=== PATIENT | female | born 1935 | race African-American/Black ===

== ENCOUNTER 2017-04-07 10:36 | Inpatient (IN) | payer OTHER ==
[2017-04-07] MEDS ORDERED: Albuterol/Ipratropium NEB.SOL* Albuterol 2.5 MG/Ipratropium 0.5 MG 3 ML ONE (10:44)
--- NOTE | 2017-04-07 11:49 | RAD ---
HISTORY: Shortness of breath COMPARISONS: None VIEWS: 1: frontal portable view of the chest at 11:32 AM FINDINGS: LINES AND TUBES: None. CARDIOMEDIASTINAL SILHOUETTE: The cardiac silhouette is enlarged. The cardiomediastinal silhouette is otherwise normal for portable technique. PLEURA: The costophrenic angles are sharp. No pleural abnormalities are noted. LUNG PARENCHYMA: There is a diffuse reticular pattern with indistinct pulmonary vessels. There is confluent alveolar opacification of the right lower lung. ABDOMEN: The upper abdomen is clear. There is no subphrenic gas. BONES AND SOFT TISSUES: No bone or soft tissue abnormalities are noted. IMPRESSION: 1. CARDIOMEGALY. 2. PULMONARY INTERSTITIAL EDEMA. 3. RIGHT LOWER LUNG CONSOLIDATION. 4. RECOMMEND FOLLOW-UP UNTIL RESOLUTION TO UNDERLYING PULMONARY PARENCHYMAL PATHOLOGY.
[2017-04-07 12:12] LABS: Hematocrit 35 % (35-47); Hemoglobin 11.4 g/dl (12.0-16.0); Mean Corpuscular HGB Conc 33 g/dl (31-36); Mean Corpuscular Hemoglobin 31 pg (27-31); Mean Corpuscular Volume 96 fL (80-97); Mean Platelet Volume 11 um3 (7.4-10.4); Platelet Count 133 10^3/ul (150-450); Red Blood Count 3.66 10^6/ul (4.0-5.4); Red Cell Distribution Width 14 % (10.5-15); White Blood Count 14.2 10^3/ul (3.5-10.8)
[2017-04-07 12:15] LABS: INR 1.84 (0.77-1.02)
[2017-04-07 12:27] LABS: EGFR Non-African American 37.2 (>60)
[2017-04-07 12:49] LABS: ABS Basophils 0.1 10^3/ul (0-0.2); ABS Eosinophils 0 10^3/ul (0-0.6); ABS Lymphocytes 0.7 10^3/ul (1.0-4.8); ABS Monocytes 1.5 10^3/ul (0-0.8); ABS Neutrophils 11.8 10^3/ul (1.5-7.7); ABS Nucleated RBC 0 10^3/ul; Eosinophil % 0.1 % (0-6); Nucleated Red Blood Cells % 0
[2017-04-07] MEDS ORDERED: Aspirin TAB* 325 MG PO ONE (13:08)
[2017-04-07] MEDS ORDERED: Metoprolol Tartrate IV* 1 MG/ML 5 ML VIAL IV ONE (13:08)
[2017-04-07] MEDS ORDERED: Digoxin IV* 0.5 MG/2 ML AMP (0.25 MG/ML) IV SLOW PU ONE (13:09)
[2017-04-07] MEDS ORDERED: Perflutren Lipid Microsphere* 3 ML VIAL ONE (15:08)
[2017-04-07] MEDS ORDERED: Potassium Chloride LIQUID* 20 MEQ PACKET PO ONE (15:13)
[2017-04-07] MEDS ORDERED: Heparin DRIP 25,000 UNITS(*) 25,000 UNITS/500 ML BAG IVPB SCH (15:15)
[2017-04-07 15:55] LABS: Hematocrit 37 % (35-47); Hemoglobin 11.8 g/dl (12.0-16.0); Mean Corpuscular HGB Conc 32 g/dl (31-36); Mean Corpuscular Hemoglobin 31 pg (27-31); Mean Corpuscular Volume 96 fL (80-97); Mean Platelet Volume 12 um3 (7.4-10.4); Platelet Count 126 10^3/ul (150-450); Red Blood Count 3.86 10^6/ul (4.0-5.4); Red Cell Distribution Width 15 % (10.5-15); White Blood Count 13.6 10^3/ul (3.5-10.8)
[2017-04-07] MEDS ORDERED: Heparin VIAL(*) 5000 UNITS/ML VIAL (FIVE THOUSAND) IV SCH (16:00)
--- NOTE | 2017-04-07 16:34 | RAD ---
INDICATION: Shortness of breath, chest pain. Bilateral leg swelling. COMPARISON: No relevant prior exams available on the [facility] for comparison. TECHNIQUE: Hoff scale, color Doppler, and spectral analysis of the deep veins of the BILATERAL lower extremities. Vessel compression, phasicity, and augmentation assessed. REPORT: The RIGHT common femoral, great saphenous, profunda femoral, femoral, popliteal, peroneal, and posterior tibial veins are patent. The LEFT common femoral, great saphenous, profunda femoral, femoral, popliteal, peroneal, and posterior tibial veins are patent. IMPRESSION: No evidence for RIGHT or LEFT lower extremity DVT.
[2017-04-07 16:41] LABS: ABS Basophils 0.1 10^3/ul (0-0.2); ABS Eosinophils 0 10^3/ul (0-0.6); ABS Lymphocytes 0.9 10^3/ul (1.0-4.8); ABS Monocytes 1.5 10^3/ul (0-0.8); ABS Neutrophils 11.1 10^3/ul (1.5-7.7); ABS Nucleated RBC 0 10^3/ul; Eosinophil % 0.1 % (0-6); Lymphocyte % 6.9 % (25-47); Nucleated Red Blood Cells % 0
[2017-04-07] MEDS ORDERED: Furosemide IV* 10 MG/ML 2 ML VIAL (20 MG) IV SLOW PU ONE (19:23)
[2017-04-07] MEDS ORDERED: Albuterol HFA INHALER* 8 gm MDI INH PRN (19:27)
[2017-04-07] MEDS ORDERED: Acetaminophen TAB* 325 MG PO PRN (19:37)
[2017-04-07] MEDS ORDERED: Morphine INJ* 2 MG/ML 1 ML CARPUJECT IV ONE (19:37)
[2017-04-07] MEDS ORDERED: Morphine INJ* 2 MG/ML 1 ML SYRINGE (TWO MG - NEW SYRINGE VERSION) ONE ×2 (19:50→21:12)
[2017-04-07] MEDS ORDERED: Levofloxacin 750 MG IVPREMIX(* 750 MG/150 ML BAG IVPB SCH ×2 (20:00)
[2017-04-07] MEDS ORDERED: Iodixanol* (CONTRAST) 320 MG/ML 100 ML SDV IV ONE (20:20)
--- NOTE | 2017-04-07 20:38 | CONS ---
CC: Dr. Ulloa; Dr. Ace CONSULTATION REPORT: ADDENDUM: MEDICATIONS: 1. Warfarin 5 mg a day. 2. Digoxin 0.125 mg a day. 3. Diltiazem 300 mg a day. 4. Valsartan 320 mg a day. 5. Advair Diskus 1 puff inhaler b.i.d. 6. Furosemide 20 mg a day. 7. Cholecalciferol/vitamin D 1000 units daily. 8. Ventolin inhaler 2 puffs q.4 p.r.n. As an inpatient here, she has got: 1. Digoxin 0.25 IV. 2. Aspirin 325. 3. Metoprolol 5 mg IV x1 at 1326. CONCLUSION: We would follow serial enzymes. We will try to replace her potassium. [id number]/[facility] #: [id number] MTDD
[2017-04-07] MEDS: Morphine INJ* 2 MG/ML 1 ML SYRINGE (TWO MG - NEW SYRINGE VERSION) IV PRN (21:14)
--- NOTE | 2017-04-07 21:19 | RAD ---
INDICATION: Acute chest pain. COMPARISON: None TECHNIQUE: Axial source images were acquired following the administration of 79 mL Visipaque [address] angiographic technique. Coronal and sagittal reconstructed images were constructed and reviewed. FINDINGS: Reflux of the intravenously injected contrast as far as the hepatic veins can be seen in the setting of congestive heart failure. There there are no filling defects in the pulmonary arteries to indicate acute pulmonary embolic disease. The right pulmonary artery measures up to 3.3 cm in diameter. There are patchy groundglass infiltrates throughout both lungs. There is small bibasilar pleural effusions, slightly larger on the right than the left. The heart is normal in size. There is no evidence of pericardial effusion. There is no evidence of aortic aneurysm or dissection. There is no mediastinal, hilar, or axillary lymphadenopathy. The visualized osseous structures appear normal. Limited views of the upper abdomen show no abnormalities. IMPRESSION: 1. No CT of evidence of pulmonary embolism. 2. Patchy groundglass densities and small pleural effusions could be seen in the setting of cardiogenic pulmonary edema. 3. Further evidence of congestive heart failure is intravenously injected contrast refluxing into the hepatic veins. 4. The mildly enlarged right mainstem pulmonary artery could be seen in the setting of pulmonary arterial hypertension.
[2017-04-07] MEDS: guaiFENesin ER TAB 600 MG PO SCH (21:41)
[2017-04-07 21:55] LABS: Urine Appearance Clear; Urine Blood 1+ (Negative); Urine Color Yellow; Urine Ketones Negative (Negative); Urine Protein Negative (Negative); Urine Specific Gravity 1.035 (1.010-1.030); Urine Urobilinogen Negative (Negative)
[2017-04-07] MEDS ORDERED: Ondansetron INJ* 2 MG/ML VIAL IV PRN (22:40)
[2017-04-07] MEDS ORDERED: Bumetanide IV* 0.25 MG/ML 4 ML VIAL SLOW PUSH ONE (23:15)
[2017-04-07] MEDS ORDERED: Bumetanide IV* 0.25 MG/ML 4 ML VIAL ONE (23:21)
--- NOTE | 2017-04-07 23:58 | HP ---
CC: Vicky Ace MD; Franco Ulloa MD * ADMISSION HISTORY AND PHYSICAL: DATE OF ADMISSION: 04/07/17 PRIMARY CARE PROVIDER: Vicky Ace MD MY ATTENDING WHILE IN THE HOSPITAL: Debra Carvajal MD * (DICTATED BY TAYLOR VELA) CONSULTING PORTABLE ROUTER OPERATOR: Magdaleno Ulloa MD CHIEF COMPLAINT: Chest pain x5 days. HISTORY OF PRESENT ILLNESS: The patient is a 81-year-old female with a past medical history significant for coronary artery disease with an MA in 2007, asthma, hypertension, atrial fibrillation on Coumadin, who presents with 5 days of extreme head, neck, arm, and chest pain starting on last , 04/03/17. The patient describes the pain as crushing and states that it was non- fluctuating day and night, accompanied by diaphoresis and shortness of breath. The patient refused to go to the hospital; however, the patient felt lightheaded and had to lie down for most of this time. The patient's pain started to decrease on Friday and Friday; however, it became more worse again with shortness of breath while lying down. The patient also had accompanying nausea and vomiting on the morning of 04/07/17 and at that time knew that she had to go to the hospital. The patient also had a cough that started on and has been getting worse. The patient states she occasionally brings up phlegm, which she does not look at. The patient denies hemoptysis. The patient has had no subjective fevers, but has had intermittent chills, especially since being in the hospital. The patient felt decreased appetite these last few days with no desire for meat. The patient does not know if she has ever had her cholesterol tested. The patient denied history of diabetes. The patient has intermittent swelling in her legs. The patient has no long- term increasing dyspnea on exertion. The patient is unable to quantify the amount of exercise she is capable of at one time. PAST MEDICAL HISTORY: CAD with MA in 2007, asthma, hypertension, atrial fibrillation on Coumadin. MEDICATIONS: 1. Warfarin 5 mg p.o. daily. 2. Digoxin 1.25 mg p.o. daily. 3. Diltiazem CD 300 mg p.o. daily. 4. Losartan 320 mg p.o. daily. 5. Advair 250/50 one puff inhalation b.i.d. 6. Lasix 20 mg p.o. daily. 7. Vitamin D 2000 units p.o. daily. 8. Albuterol inhaler 2 puffs inhalation q.4 hours as needed. ALLERGIES: No known drug allergies. FAMILY HISTORY: The patient's mother had an unknown heart condition, from which she as did 2 of the patient's nephews. The patient's father, 2 uncles, and nephew also had lung cancer. SOCIAL HISTORY: The patient has a [id number] history of smoking, but quit in 1991. The patient drank alcohol occasionally her whole life. The patient denies any illicit drugs. The patient worked for the majority of her life at the [employer] [facility] [employer] [place]. The patient is not and has 4 children. REVIEW OF SYSTEMS: A 14-point review of systems was conducted and is negative except as stated in the HPI. PHYSICAL EXAMINATION GENERAL: The patient is a 81-year-old -[place] female, who appears stated age and is sitting in the bed leaned slightly forward with increased work of breathing. VITAL SIGNS: Temperature 99.6, pulse rate 76, respiratory rate 25, oxygen saturation 96% on room air, blood pressure 107/74. HEENT: Head normocephalic, atraumatic. Sclerae anicteric. No conjunctival injection. Nasal mucosa moist. Oral mucosa moist. Arcus senilis is present. No pharyngeal erythema, exudates, or postnasal drainage. NECK: Supple, nontender. JVD present to the angle of the jaw at 45 degrees. No lymphadenopathy. RESPIRATORY: Clear to auscultation bilaterally. No wheezes, rales, or rhonchi. Good air exchange bilaterally. CARDIAC: Irregularly irregular rhythm. Grade 3/6 holosystolic murmur heard best at the apex. No other adventitious heart sounds. Pulses 2+ in bilateral dorsal pedis, posterior tibialis, and radial areas. 1+ pitting edema in the bilateral lower extremities. ABDOMEN: Soft, nontender, nondistended. Bowel sounds present. Normoactive in all 4 quadrants. No hepatosplenomegaly or abdominal bruits auscultated. GENITOURINARY: No suprapubic tenderness or CVA tenderness. SKIN: Clean, dry, intact. No rash. NEUROLOGIC: Cranial nerves II through XII grossly intact. Alert and oriented x3. No focal deficits. PSYCHIATRIC: Pleasant and cooperative. DIAGNOSTIC STUDIES/LAB DATA: White blood cell count 13.6, red blood cell count 3.86, hemoglobin 11.8, platelet count 126,000, neutrophils 81%, lymphocytes 6.9%, absolute neutrophils 11.1%. INR 1.84, APTT 33.7. Sodium 133 , potassium 3.7, chloride 96, carbon dioxide 33, anion gap 4, BUN 16, creatinine 1.37, glucose 128, lactic acid 1.6, calcium 9.0. Total bilirubin 0.9 , AST 35, ALT 21, alkaline phosphatase 67. Troponin I initially 10.31, decreased to 7.43. CRP 43.31. BNP 647. Total protein 7.9. Albumin 3.9, globulin 4.0, albumin/globulin ratio 1.0. Triglycerides 70, cholesterol 144, LDL cholesterol 75, HDL cholesterol 55. Procalcitonin 0.1. Digoxin 1.3. Influenza A and B negative. Studies: Electrocardiogram shows atrial fibrillation, rate of 114, right bundle - branch pattern, ST segments not interpretable, QTc of 462, no other abnormalities. Repeat EKG shows rate of 78, 2 PVCs, left axis deviation, no other abnormalities. Chest x-ray from 04/07/17 read as cardiomegaly, pulmonary interstitial edema, right lower lung consolidation. Recommend followup until resolution to rule out underlying pulmonary parenchymal pathology. Echocardiogram from 04/07/17 read as mild concentric left ventricular hypertrophy observed. Estimated ejection fraction 50% to 55%, closer to 55%. There is septal flattening in the interventricular septum consistent with right ventricular volume or pressure overload. Left atrium is severely dilated. The right ventricle is mildly dilated. The right ventricular global systolic function is mildly reduced. The right atrial cavity size is severely dilated. The aortic valve leaflets are mildly thickened. There is mild aortic regurgitation. There is mild mitral valve prolapse. There is moderate to severe mitral regurgitation, severe based on PISA and the eccentric wall jet. Mitral regurgitation jet is posteriorly directed. There is severe tricuspid regurgitation. There is evidence of marked severe pulmonary hypertension. There is mild pulmonic regurgitation. There is mild dilatation of the ascending aorta. Venous Doppler study from 04/07/17 read as no evidence of right or left lower extremity DVT. ASSESSMENT AND PLAN: Impression: The patient is a 81-year-old female with past medical history significant for coronary artery disease with myocardial infarction in 2007 with no stents, asthma, hypertension, and atrial fibrillation , who presents after 5 days of severe chest pain. The patient has an elevated troponin. Cardiology was consulted. The patient's left ventricular systolic function is relatively preserved. The patient has severe mitral regurgitation and consolidation on x-ray. The patient will be admitted to the ICU for treatment of probable pneumonia and diuresis related to acute congestive heart failure. The patient will also be tested for pulmonary embolism. 1. Elevated troponin, chest pain. Appreciate Cardiology consult. It is believed this is not acute coronary syndrome and is likely due to right ventricular strain seen on echocardiogram, possibly due to severe mitral regurgitation or pulmonary embolism given the patient's chest pain. The patient had bilateral negative lower extremity ultrasound. The patient does; however, have intermittent swelling in her legs, which predisposes to blood clots. The patient is on warfarin and is subtherapeutic. We will order CTA of the chest. The patient's EGFR is 47.9. We will monitor for signs of contrast- induced nephropathy. The patient's LDL cholesterol is 75 and HDL cholesterol is 55.4. We will not initiate statin therapy at this time. The patient should undergo a cardiac catheterization after the acute phase of her illness. The patient previously had a cardiac catheterization in [place], which she states showed coronary artery disease, but no stentable blockage. The patient will be continued on digoxin for rate control and have her valsartan and Cardizem held. The patient will also be started on heparin drip for the possibility of pulmonary embolism as well as being subtherapeutic on her warfarin. The patient will be started on aspirin low dose daily. The patient continued to have chest pain at the time of exam. The patient will be given morphine as a one-time dose and re-dosed as needed for chest pain. 2. Pneumonia, community acquired. The patient has chills, temperature elevation, productive cough, loss of appetite, and consolidation on chest x- ray. The patient's CRP is elevated, however, procalcitonin is low. The patient had negative influenza. Due to the risk of this contributing to the patient's cardiac strain, we will treat with levofloxacin 750 mg p.o. q.48 hours due to creatinine clearance. The patient will also have supportive care. The patient has a normal lactic acid and does not appear septic at this time. 3. Mitral regurgitation. This is severe on echocardiogram. It is not believed to be due to recent myocardial infarction. After the acute phase of the patient's illness, the patient should have this surgically fixed. 4. Atrial fibrillation. The patient is currently rate controlled on digoxin. We will monitor at this time. The patient is currently rate controlled on digoxin. We will hold the patient's diltiazem due to hypotension. The patient' s digoxin level is therapeutic, we will recheck in the morning. 5. Asthma. We will continue the patient's home inhaler as the patient is not wheezing on exam. The patient is influenza negative. 6. FEN. The patient will have a heart-healthy diet without caffeine. We will not give fluids at this time due to congestive heart failure. 7. Code status: The patient is a full code, but would not like to be intubated. 8. DVT prophylaxis. The patient is on a heparin drip and warfarin. We will monitor INRs. 9. Disposition: The patient is admitted to the ICU. The patient may need transfer after the acute phase of her illness for mitral valve replacement. TIME SPENT: Approximately 75 minutes were spent on this admission, 45 of which were spent [id number] with the patient obtaining history and physical and treatment plan. This plan has been discussed with my attending, Dr. Debra Carvajal, and she is in agreement. TAYLOR VELA [id number]/[facility] #: [id number] BASIL
--- NOTE | 2017-04-08 00:23 | CONS ---
CC: Dr. Ace * CARDIOLOGY CONSULTATION: DATE OF CONSULT: 04/07/17 PATIENT OF: Dr. Ace. REASON FOR EVALUATION: Shortness of breath, chest pain. HISTORY OF PRESENT ILLNESS: This is a very pleasant 81-year-old woman with a history of AFib dating back to 2007. She also has a history of chest pain, was seen at [facility] in the [facility] in 2007. Apparently had a negative workup and then had recurrent chest pain, was seen at [facility] and underwent cardiac catheter-ization. The patient was told that she had nonobstructive disease, although we do not have the records. It was decided to manage her medically. She says that she was doing well, she was in her own place and is able to go to the store with her son and walk up and down the [employer] aisles. She said that last , 04/03/17, she developed left head, neck, and arm pain associated with diaphoresis and vomiting. She also had some diarrhea. She was talking to her son on the phone, but had interrupted conversation. She was advised to go to the emergency room, but declined. She said that she was miserable all day and night and felt poorly Friday. She started to feel a little better on Friday she said, but was not able to take much by mouth, felt like her appetite was decreased. She noticed last night she was more short of breath, did not really complain of any left arm or chest discomfort, but did have some neck discomfort. She said because of the worsening shortness of breath, she was up all night and could not lie down and then this morning because of those symptoms decided to come to the emergency room. She called paramedics, who gave her some oxygen, it helped her feel better and she came to the emergency room. She was found to be in AFib with right bundle and elevated ventricular response. She said that she has continued to take her medicines over the last few days. She denies fever, but does have an issue of cough, which is occasionally productive, but she is not sure what she brings up. She has some chronic edema of her right leg, but none on the left. She denies any bleeding problems, strokes, or mini-strokes. PAST MEDICAL HISTORY: Includes admissions for chest pain in 2007 with a cardiac catheterization as per the patient, nonobstructive disease. She has a history of hypertension, atrial fibrillation since 2007. She has a history of asthma. She has a history of tobacco use, discontinued in 1991. PAST SURGICAL HISTORY: Includes tubal ligation and left ear surgery. MEDICATIONS: 1. Warfarin 5 mg a day. 2. Digoxin 0.125 mg a day. 3. Diltiazem 300 mg a day. 4. Valsartan 320 mg a day. 5. Advair Diskus 1 puff inhaler b.i.d. 6. Furosemide 20 mg a day. 7. Cholecalciferol/vitamin D 1000 units daily. 8. Ventolin inhaler 2 puffs q.4 p.r.n. As an inpatient here, she has got: 1. Digoxin 0.25 IV. 2. Aspirin 325. 3. Metoprolol 5 mg IV x1 at 1326. ALLERGIES: She denies any allergies. SOCIAL HISTORY: She has occasional alcohol. She denies caffeine use. She is single, has 4 children, one of whom lives in [place]. She moved to [place] in 2015 from [place]. 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 Her mother had heart problems in her 30s, at 76. Father at 76 from lung cancer. She has 5 brothers and 4 sisters. No premature coronary artery disease. REVIEW OF SYSTEMS: Times 10 was negative except as above. PHYSICAL EXAMINATION: She is a well-developed, well-nourished -[place]i female, in no apparent distress. She seems to get short of breath with talking. Blood pressure 92/63, heart rate 77 and regular. JVD approximately 10 to 12 cm. Carotids 2+ without bruits. Extraocular muscles intact. Sclerae anicteric. Atraumatic, normocephalic. Arcus senilis present. Cardiac Exam: S1 , S2 with a 4/6 holosystolic murmur at the apex radiating across the precordium. Chest with rales at the right base and decreased breath sounds diffusely. Abdomen: Bowel sounds present and nontender. Femoral pulses intact without bruits. There is 1+ edema on the right leg. Distal pulses intact. No edema. Negative Homans' sign. DIAGNOSTIC STUDIES/LAB DATA: EKG revealed atrial fibrillation with an elevated ventricular response at 114 with a right bundle-branch block and anterolateral ST depressions raised possibility of ischemia. Labs include white count of 14.2, hemoglobin 11.4, hematocrit of 35, platelet count of 133. Sodium 133, potassium of 3.3, BUN of 17, creatinine of 1.37. Troponin of 10.31. BNP elevated at 647. Dig level of 1.3. Chest x-ray revealed cardiomegaly, pulmonary interstitial edema, right lower lobe consolidation. IMPRESSION: My impression is that Ms. Pierce has had several days of cough, chest pain, shortness of breath, orthopnea and now has elevated white count, possible infiltrate as well as heart failure, chest pain and elevated troponin raised the possibility of a non-ST elevation myocardial infarction. Other possibilities include cor pulmonale on the basis of pulmonary disease or pulmonary embolism and she has mild renal insufficiency. For the time being, I have recommended the followin. I would continue rate control with digoxin in low doses and metoprolol as tolerated. 2. Attempt gentle diuresis, Lasix. We will have to follow up volume status given her borderline blood pressures. 3. Would consider trial of IV heparin given the potential for acute coronary syndrome and pulmonary embolism. 4. Subtherapeutic INR of 1.84. 5. Would obtain duplex scans of the legs. 6. We will obtain an echocardiogram to assess the murmur on exam suggestive of MR and her LV function. 7. I explained to her and her son at the bedside that if indeed she has an ischemic cardiomyopathy and significant MR, she may require more definitive evaluation for that and perhaps surgery at some point. 8. She will require evaluation for ischemic heart disease at some point. 9. Would treat with antibiotics for a possible pneumonia given her elevated white count, cough, chest pain, and the chest x-ray findings. 10. follow serial cardiac enzymes and ekg's. 11. Maintain k over 4 Further recommendations will depend on her clinical course. ADDENDUM: see echo report. EF low normal with moderate perhaps severe MR, moderate to severe pulmonary hypertension, biatrial and RV enlargement. Pateint may have hemodynamically compromising MR. I explained that she may require repair/replacement of the Mitral Valve. Consider further evaluation , possibly with cath and /or NE, after treatment of CHF and Pneumonia. [facility] 1.16.18 6;37 am [id number]/[facility] #: [id number]/[facility] #: [id number] BASIL
[2017-04-08] MEDS ORDERED: LORazepam INJ* 2 MG/ML 1 ML VIAL IV PUSH ONE (01:45)
[2017-04-08] MEDS: Mometasone/Formoter 200/5 MDI INH SCH ×2 (02:46→08:10)
[2017-04-08] MEDS: Morphine INJ* 2 MG/ML 1 ML SYRINGE (TWO MG - NEW SYRINGE VERSION) IV PRN ×2 (03:00→16:51)
[2017-04-08 05:47] LABS: Hematocrit 36 % (35-47); Hemoglobin 11.5 g/dl (12.0-16.0); Mean Corpuscular HGB Conc 32 g/dl (31-36); Mean Corpuscular Hemoglobin 31 pg (27-31); Mean Corpuscular Volume 96 fL (80-97); Mean Platelet Volume 12 um3 (7.4-10.4); Platelet Count 117 10^3/ul (150-450); Red Blood Count 3.76 10^6/ul (4.0-5.4); Red Cell Distribution Width 14 % (10.5-15)
[2017-04-08 05:49] LABS: ABS Basophils 0 10^3/ul (0-0.2); ABS Eosinophils 0 10^3/ul (0-0.6); ABS Lymphocytes 0.8 10^3/ul (1.0-4.8); ABS Monocytes 1.6 10^3/ul (0-0.8); ABS Neutrophils 10.6 10^3/ul (1.5-7.7); ABS Nucleated RBC 0 10^3/ul; Eosinophil % 0 % (0-6); Lymphocyte % 5.9 % (25-47); Nucleated Red Blood Cells % 0
[2017-04-08 06:12] LABS: EGFR Non-African American 35.4 (>60)
--- NOTE | 2017-04-08 07:53 | RAD ---
INDICATION: Pulmonary edema. Short of breath. COMPARISON: April 07, 2017 TECHNIQUE: An AP portable view obtained at 0530 hours is submitted. FINDINGS: Bones/Soft Tissues: There are no acute bony findings. Cardiomediastinal: The cardiac silhouette, central pulmonary vessels, and interstitium are prominent compatible with moderate vascular congestion. Lungs: Interstitial and alveolar change most consistent with edema. Pleura: Small moderate-sized bilateral pleural effusions. Other: None IMPRESSION: MODERATE VASCULAR CONGESTIVE FINDINGS WITH MINOR WORSENING.
[2017-04-08] MEDS ORDERED: Cholecalciferol TAB* 1000 UNITS PO SCH (09:00)
[2017-04-08] MEDS ORDERED: Furosemide IV* 10 MG/ML 2 ML VIAL (20 MG) IV SLOW PU SCH (09:00)
[2017-04-08] MEDS ORDERED: Digoxin TAB* 0.125 MG PO SCH (09:00)
[2017-04-08] MEDS ORDERED: Atorvastatin* 40 MG TAB PO SCH (09:00)
[2017-04-08] MEDS ORDERED: Aspirin EC Low Dose* 81 MG TAB.EC PO SCH (09:00)
[2017-04-08] MEDS: guaiFENesin ER TAB 600 MG PO SCH (09:08)
[2017-04-08] MEDS ORDERED: Furosemide IV* 10 MG/ML 2 ML VIAL (20 MG) IV ONE (10:26)
[2017-04-08] MEDS ORDERED: Magnesium Sulfate 2 GM IV* 2 GM/50 ML BAG IVPB ONE (10:26)
--- NOTE | 2017-04-08 10:35 | PN ---
Subjective Date of Service: 04/08/17 Interval History: Pt c/o no pain, still SOB, on Vapotherm Had CP with left arm and jaw pain 4-5 days ago, SOB ever since Objective Active Medications: Acetaminophen (Tylenol Tab*) 650 mg PO Q4H PRN PRN Reason: PAIN Albuterol (Ventolin Hfa Inhaler*) 2 puff INH Q4H PRN PRN Reason: SHORTNESS OF BREATH Aspirin (Aspirin Ec Low Dose*) 81 mg PO DAILY [facility] Last Admin: 04/08/17 09:08 Dose: 81 mg Atorvastatin Calcium (Lipitor*) 40 mg PO DAILY [facility] Last Admin: 04/08/17 09:08 Dose: 40 mg Cholecalciferol (Vitamin D Tab*) 1,000 units PO DAILY [facility] Last Admin: 04/08/17 09:08 Dose: 1,000 units Digoxin (Lanoxin Tab*) 0.125 mg PO DAILY [facility] Last Admin: 04/08/17 09:08 Dose: 0.125 mg Furosemide (Lasix Iv*) 20 mg IV SLOW PU DAILY [facility] Last Admin: 04/08/17 09:08 Dose: 20 mg Guaifenesin (Mucinex*) 1,200 mg PO BID [facility] Last Admin: 04/08/17 09:08 Dose: 1,200 mg Heparin Sodium (Porcine) (Heparin Vial(*)) 0 units IV .PER PROTOCOL REMY PRN Reason: Protocol Last Admin: 04/07/17 15:48 Dose: 5,000 units Heparin Sodium/Dextrose (Heparin Drip 25,000 Units(*)) 25,000 units in 500 mls @ 0 mls/hr IVPB .PER RATE REMY; Per Protocol PRN Reason: Protocol Last Admin: 04/07/17 15:49 Dose: 21 mls/hr Levofloxacin/Dextrose (Levaquin 750 Mg Ivpremix(*)) 750 mg in 150 mls @ 100 mls /hr IVPB Q48H [facility] Last Admin: 04/07/17 22:22 Dose: 100 mls/hr Magnesium Sulfate (Magnesium Sulfate 2 Gm Iv*) 2 gm in 50 mls @ 50 mls/hr IVPB ONCE ONE Stop: 04/08/17 11:25 Mometasone Furoate/Formoterol Fumar (Dulera 200/5 Mdi*) 2 puff INH BID [facility] Last Admin: 04/08/17 08:10 Dose: 2 puff Morphine Sulfate (Morphine Inj (Syringe)*) 1 mg IV Q4H PRN PRN Reason: PAIN - CHEST Last Admin: 04/08/17 03:00 Dose: 1 mg Ondansetron HCl (Zofran Inj*) 4 mg IV Q6H PRN PRN Reason: NAUSEA/VOMITING Warfarin Sodium (Coumadin Tab(*)) 5 mg PO DAILY@1700 REMY PRN Reason: Protocol Vital Signs - 8 hr 04/08/17 04/08/17 04/08/17 02:31 03:00 03:01 Temperature 99.0 F 99.0 F 99.0 F Pulse Rate 77 76 74 Respiratory 29 21 22 Rate Blood Pressure 127/80 103/87 (mmHg) O2 Sat by Pulse 93 82 87 Oximetry 04/08/17 04/08/17 04/08/17 03:30 04:00 04:01 Temperature 99.0 F 98.4 F 98.4 F Pulse Rate 72 74 72 Respiratory 27 17 17 Rate Blood Pressure 102/71 94/70 (mmHg) O2 Sat by Pulse 95 94 94 Oximetry 04/08/17 04/08/17 04/08/17 04:31 05:00 05:01 Temperature 98.4 F 98.4 F 98.4 F Pulse Rate 86 80 83 Respiratory 22 19 25 Rate Blood Pressure 106/80 99/73 (mmHg) O2 Sat by Pulse 86 89 90 Oximetry 04/08/17 04/08/17 04/08/17 05:30 06:00 06:01 Temperature 98.4 F 98.4 F 98.4 F Pulse Rate 80 74 75 Respiratory 26 16 17 Rate Blood Pressure 103/73 99/67 (mmHg) O2 Sat by Pulse 95 98 98 Oximetry 04/08/17 04/08/17 04/08/17 06:30 07:00 07:01 Temperature 97.7 F 97.0 F 96.8 F Pulse Rate 67 73 68 Respiratory 16 14 14 Rate Blood Pressure 106/70 85/61 (mmHg) O2 Sat by Pulse 100 97 97 Oximetry 04/08/17 04/08/17 04/08/17 07:30 08:00 08:01 Temperature 97.9 F 98.1 F 98.1 F Pulse Rate 93 89 85 Respiratory 22 30 28 Rate Blood Pressure 109/77 124/88 (mmHg) O2 Sat by Pulse 93 88 98 Oximetry 04/08/17 04/08/17 04/08/17 08:18 08:30 09:00 Temperature 98.2 F 98.2 F Pulse Rate 85 77 90 Respiratory 19 18 24 Rate Blood Pressure 104/68 113/77 (mmHg) O2 Sat by Pulse 93 97 93 Oximetry 04/08/17 04/08/17 04/08/17 09:01 09:08 09:30 Temperature 98.2 F 98.2 F Pulse Rate 92 88 85 Respiratory 19 25 Rate Blood Pressure 111/79 (mmHg) O2 Sat by Pulse 100 97 Oximetry Oxygen Devices in Use Now: High Flow Heated Nasal Cannula - at 20 l Appearance: 81 yo f in nAD, AAOx3 Eyes: No Scleral Icterus, PERRLA Ears/Nose/Mouth/Throat: NL Teeth, Lips, Gums, Mucous Membranes Moist Neck: Trachea Midline, - - +JVD b/l Respiratory: - - crackles at b/l bases Cardiovascular: - - irregular, 2/6 MIKEY at apex Abdominal: NL Sounds; No Tenderness; No Distention, No Hepatosplenomegaly Lymphatic: No Cervical Adenopathy Extremities: No Clubbing, Cyanosis, - - trace pedal edema b/l Skin: No Nodules or Sclerosis Neurological: Alert and Oriented x 3, NL Muscle Strength and Tone Result Diagrams: 04/08/17 05:25 04/08/17 05:25 Microbiology and Other Data: Microbiology 04/07/17 20:06 Nasal Screen MRSA (PCR)(GABRIELLA) - Final Nasal Mrsa Negative Assess/Plan/Problems-Billing Assessment: 81 yo F with h/o CHF, A. fib (on coumadin) presents with pulm edema and troponin of 10 4 days after CP - Patient Problems (1) CHF (congestive heart failure) Comment: Acute- due to suspected acute MR , EF55%, severe MR and TR cont diuretics, use limited by low SBP Cardiology consult pending (2) NSTEMI (non-ST elevated myocardial infarction) Comment: troponin trending down, max at 10-suspect pt's ACS occured with CP 4-5 days ago and she develped acute MR and pulm edema due to that Awaiting cardiology reports (past echo) form [place] Cont ASA, statin, heparin gtt (3) Atrial fibrillation Comment: chronic, cont digoxin, rate controlled. Cardizem on hold due low SBP's (4) Infiltrate noted on imaging study Comment: CTA images consistent with pulm edema, procalcitonin low, no evidence of pneumonia Leukocytosis-suspected due to stress, no evidence of infection. will stop antibiotcs (5) Creatinine elevation Comment: suspect CKD but no baseline labs noted. Cont to monitor (6) DVT prophylaxis Comment: heparin gtt Status and Disposition: inpatient
--- NOTE | 2017-04-08 12:49 | ED ---
Ani Pinon Thomas, scribed for Sony Shanks MD on 04/07/17 at 1054 . Shortness of Breath - HPI Summary HPI Summary: The patient is a 81 year old female who complains of chest pain that began four days ago when she was talking to her son on the phone. The pain radiated into her jaw and left side of her face as well as her left arm. The pain was severe and she had to lie down. Three days ago, the pain still bothered her. Two days ago, the patient felt a little better but she then began to develop trouble breathing. Today, she feels short of breath and still has chest pain, although the pain in her head and neck is now gone. - History of Current Complaint Time Seen by Provider: 04/07/17 10:52 Hx Obtained From: Patient Onset/Duration: Lasting Days - 4, Still Present Timing: Constant Dyspnea At: Rest Alleviating Factors: Nothing Associated Signs & Symptoms: Chest Pain Unrelated to Cough - Allergy/Home Medications Allergies/Adverse Reactions: Allergies Allergy/AdvReac Type Severity Reaction Status Date / Time No Known Allergies Allergy Verified 04/07/17 13:26 Home Medications: Home Medications Albuterol HFA INHALER* [Ventolin HFA Inhaler*] 2 puff INH Q4H PRN 04/07/17 [ History Confirmed 04/07/17] Cholecalciferol TAB* [Vitamin D TAB*] 1,000 unit PO DAILY 04/07/17 [History Confirmed 04/07/17] Digoxin TAB* [Lanoxin TAB*] 0.125 mg PO DAILY 04/07/17 [History Confirmed ] Diltiazem HCl Extended Release [Taztia Xt] 300 mg PO DAILY 04/07/17 [History Confirmed 04/07/17] Fluticasone-Salmeterol 250-50* [Advair Diskus 250-50*] 1 puff INH BID 04/07/17 [ History Confirmed 04/07/17] Furosemide TAB* [Lasix TAB*] 20 mg PO DAILY 04/07/17 [History Confirmed 04/07/17 ] Valsartan TAB* [Diovan TAB*] 320 mg PO DAILY 04/07/17 [History Confirmed ] Warfarin TAB(*) [Coumadin TAB(*)] 5 mg PO DAILY 04/07/17 [History Confirmed ] PMH/Surg Hx/FS Hx/Imm Hx Previously Healthy: Yes Endocrine/Hematology History: Denies: Hx Diabetes Cardiovascular History: Reports: Hx Coronary Artery Disease - Family History Known Family History: Positive: Cardiac Disease - Social History Alcohol Use: None Hx Substance Use: No Substance Use Type: Reports: None Hx Tobacco Use: Yes Smoking Status (MU): Former Smoker Review of Systems Negative: Fever - temperature 99.6 Positive: Chest Pain Positive: Shortness Of Breath All Other Systems Reviewed And Are Negative: Yes Physical Exam - Summary Physical Exam Summary: Appearance: The patient is well-nourished in no acute distress and in no acute pain. Skin: The skin is warm and dry and skin color reflects adequate perfusion. HEENT: The head is normocephalic and atraumatic. The pupils are equal and reactive. The conjunctivae are clear and without drainage. Nares are patent and without drainage. Mouth reveals moist mucous membranes and the throat is without erythema and exudate. The external ears are intact. The ear canals are patent and without drainage. The tympanic membranes are intact. Neck: the neck is supple with full range of motion and non-tender. There are no carotid bruits. There is no neck vein distension. Respiratory: Chest is non-tender. There are decreased breath sounds in all lung bhatti. Cardiovascular: Heart is regular rate and rhythm. There is no murmur or rub auscultated. There is slight pitting edema in both ankles. Pulses are symmetrical and equal. Abdomen: The abdomen is soft and non-tender. There are normal bowel sounds heard in all four quadrants and there is no organomegaly palpated. Musculoskeletal: There is no back tenderness noted. Extremities are non-tender with full range of motion. There is good capillary refill. There is slight pitting edema in both ankles. There is no calf tenderness elicited. Neurological: Patient is alert and oriented to person, place and time. The patient has symmetrical motor strength in all four extremities. Cranial nerves are grossly intact. Deep tendon reflexes are symmetrical and equal in all four extremities. Psychiatric: The patient has an appropriate affect and does not exhibit any anxiety or depression. Triage Information Reviewed: Yes Vital Signs On Initial Exam: Initial Vitals BP 139/105 04/07/17 10:49 Vital Signs Reviewed: Yes Diagnostics - Vital Signs Vital Signs Temp Pulse Resp BP Pulse Ox 04/07/17 19:31 97.1 F 04/07/17 19:30 75 29 110/71 100 04/07/17 19:00 79 25 107/74 96 04/07/17 18:30 73 106/83 100 04/07/17 18:00 78 103/63 91 04/07/17 17:30 89/56 04/07/17 17:00 96/57 04/07/17 16:00 73 25 100/70 88 04/07/17 15:30 73 21 101/72 92 04/07/17 15:11 73 29 87/63 92 04/07/17 15:00 75 26 82/58 89 04/07/17 14:46 22 92/63 04/07/17 14:41 78 04/07/17 14:00 89/59 04/07/17 13:45 90/66 04/07/17 13:43 84 24 87/72 79 04/07/17 13:30 112/78 04/07/17 13:27 98 27 116/79 96 04/07/17 13:00 96 27 117/74 94 04/07/17 12:30 92 24 103/65 98 04/07/17 12:00 110 30 131/81 99 04/07/17 11:30 100 30 129/82 95 04/07/17 11:12 99.6 F 112 24 113/72 100 04/07/17 11:00 107 24 113/72 97 04/07/17 10:50 41 34 97 04/07/17 10:49 139/105 - Laboratory Lab Results: Lab Results 04/07/17 04/07/17 04/07/17 Range/Units 11:54 11:54 11:54 WBC (3.5-10.8) 10^3/ul RBC (4.0-5.4) 10^6/ul Hgb (12.0-16.0) g/dl Hct (35-47) % MCV (80-97) fL MCH (27-31) pg MCHC (31-36) g/dl RDW (10.5-15) % Plt Count (150-450) 10^3/ul MPV (7.4-10.4) um3 Neut % (Auto) (38-83) % Lymph % (Auto) (25-47) % Hidalgo % (Auto) (1-9) % Eos % (Auto) (0-6) % Baso % (Auto) (0-2) % Absolute Neuts (auto) (1.5-7.7) 10^3/ul Absolute Lymphs (auto) (1.0-4.8) 10^3/ul Absolute Monos (auto) (0-0.8) 10^3/ul Absolute Eos (auto) (0-0.6) 10^3/ul Absolute Basos (auto) (0-0.2) 10^3/ul Absolute Nucleated RBC 10^3/ul Nucleated RBC % INR (Anticoag Therapy) 1.84 H (0.77-1.02) APTT (26.0-36.3) seconds Sodium 133 (133-145) mmol/L Potassium TNP Chloride 96 L (101-111) mmol/L Carbon Dioxide 33 H (22-32) mmol/L Anion Gap 4 (2-11) mmol/L BUN 17 (6-24) mg/dL Creatinine 1.37 H (0.51-0.95) mg/dL Est GFR ( Amer) 47.8 (>60) Est GFR (Non-Af Amer) 37.2 (>60) BUN/Creatinine Ratio 12.4 (8-20) Glucose 128 H (70-100) mg/dL Hemoglobin A1c (4.0-5.6) % Lactic Acid (0.5-2.0) mmol/L Calcium 9.0 (8.6-10.3) mg/dL Total Bilirubin 0.90 (0.2-1.0) mg/dL AST TNP ALT 21 (7-52) U/L Alkaline Phosphatase 67 (34-104) U/L Troponin I 10.31 H* (<0.04) ng/mL C-Reactive Protein 43.31 H (< 5.00) mg/L B-Natriuretic Peptide 647 H ( - 100) pg/mL Total Protein 7.9 (6.4-8.9) g/dL Albumin 3.9 (3.2-5.2) g/dL Globulin 4.0 (2-4) g/dL Albumin/Globulin Ratio 1.0 (1-3) Triglycerides mg/dL Cholesterol mg/dL LDL Cholesterol mg/dL HDL Cholesterol mg/dL Procalcitonin (<0.6) ng/mL Digoxin 1.3 (0.8-2.0) ng/ml Influenza A (Rapid) (Negative) Influenza B (Rapid) (Negative) 04/07/17 04/07/17 04/07/17 Range/Units 11:54 11:54 11:54 WBC 14.2 H (3.5-10.8) 10^3/ul RBC 3.66 L (4.0-5.4) 10^6/ul Hgb 11.4 L (12.0-16.0) g/dl Hct 35 (35-47) % MCV 96 (80-97) fL MCH 31 (27-31) pg MCHC 33 (31-36) g/dl RDW 14 (10.5-15) % Plt Count 133 L (150-450) 10^3/ul MPV 11 H (7.4-10.4) um3 Neut % (Auto) 83.5 H (38-83) % Lymph % (Auto) 5.0 L (25-47) % Hidalgo % (Auto) 10.9 H (1-9) % Eos % (Auto) 0.1 (0-6) % Baso % (Auto) 0.5 (0-2) % Absolute Neuts (auto) 11.8 H (1.5-7.7) 10^3/ul Absolute Lymphs (auto) 0.7 L (1.0-4.8) 10^3/ul Absolute Monos (auto) 1.5 H (0-0.8) 10^3/ul Absolute Eos (auto) 0 (0-0.6) 10^3/ul Absolute Basos (auto) 0.1 (0-0.2) 10^3/ul Absolute Nucleated RBC 0 10^3/ul Nucleated RBC % 0 INR (Anticoag Therapy) (0.77-1.02) APTT (26.0-36.3) seconds Sodium (133-145) mmol/L Potassium Chloride (101-111) mmol/L Carbon Dioxide (22-32) mmol/L Anion Gap (2-11) mmol/L BUN (6-24) mg/dL Creatinine (0.51-0.95) mg/dL Est GFR ( Amer) (>60) Est GFR (Non-Af Amer) (>60) BUN/Creatinine Ratio (8-20) Glucose (70-100) mg/dL Hemoglobin A1c (4.0-5.6) % Lactic Acid 1.6 (0.5-2.0) mmol/L Calcium (8.6-10.3) mg/dL Total Bilirubin (0.2-1.0) mg/dL AST ALT (7-52) U/L Alkaline Phosphatase (34-104) U/L Troponin I (<0.04) ng/mL C-Reactive Protein (< 5.00) mg/L B-Natriuretic Peptide ( - 100) pg/mL Total Protein (6.4-8.9) g/dL Albumin (3.2-5.2) g/dL Globulin (2-4) g/dL Albumin/Globulin Ratio (1-3) Triglycerides mg/dL Cholesterol mg/dL LDL Cholesterol mg/dL HDL Cholesterol mg/dL Procalcitonin 0.1 (<0.6) ng/mL Digoxin (0.8-2.0) ng/ml Influenza A (Rapid) (Negative) Influenza B (Rapid) (Negative) 04/07/17 04/07/17 04/07/17 Range/Units 13:30 15:31 15:31 WBC 13.6 H (3.5-10.8) 10^3/ul RBC 3.86 L (4.0-5.4) 10^6/ul Hgb 11.8 L (12.0-16.0) g/dl Hct 37 (35-47) % MCV 96 (80-97) fL MCH 31 (27-31) pg MCHC 32 (31-36) g/dl RDW 15 (10.5-15) % Plt Count 126 L (150-450) 10^3/ul MPV 12 H (7.4-10.4) um3 Neut % (Auto) 81.3 (38-83) % Lymph % (Auto) 6.9 L (25-47) % Hidalgo % (Auto) 10.8 H (1-9) % Eos % (Auto) 0.1 (0-6) % Baso % (Auto) 0.9 (0-2) % Absolute Neuts (auto) 11.1 H (1.5-7.7) 10^3/ul Absolute Lymphs (auto) 0.9 L (1.0-4.8) 10^3/ul Absolute Monos (auto) 1.5 H (0-0.8) 10^3/ul Absolute Eos (auto) 0 (0-0.6) 10^3/ul Absolute Basos (auto) 0.1 (0-0.2) 10^3/ul Absolute Nucleated RBC 0 10^3/ul Nucleated RBC % 0 INR (Anticoag Therapy) (0.77-1.02) APTT (26.0-36.3) seconds Sodium (133-145) mmol/L Potassium 3.3 L 3.7 Chloride (101-111) mmol/L Carbon Dioxide (22-32) mmol/L Anion Gap (2-11) mmol/L BUN 16 (6-24) mg/dL Creatinine (0.51-0.95) mg/dL Est GFR ( Amer) (>60) Est GFR (Non-Af Amer) (>60) BUN/Creatinine Ratio (8-20) Glucose (70-100) mg/dL Hemoglobin A1c (4.0-5.6) % Lactic Acid (0.5-2.0) mmol/L Calcium (8.6-10.3) mg/dL Total Bilirubin (0.2-1.0) mg/dL AST 35 ALT (7-52) U/L Alkaline Phosphatase (34-104) U/L Troponin I 10.43 H* (<0.04) ng/mL C-Reactive Protein (< 5.00) mg/L B-Natriuretic Peptide ( - 100) pg/mL Total Protein (6.4-8.9) g/dL Albumin (3.2-5.2) g/dL Globulin (2-4) g/dL Albumin/Globulin Ratio (1-3) Triglycerides 70 mg/dL Cholesterol 144 mg/dL LDL Cholesterol 75 mg/dL HDL Cholesterol 55.4 mg/dL Procalcitonin (<0.6) ng/mL Digoxin (0.8-2.0) ng/ml Influenza A (Rapid) (Negative) Influenza B (Rapid) (Negative) 04/07/17 04/07/17 04/07/17 Range/Units 15:31 15:31 15:55 WBC (3.5-10.8) 10^3/ul RBC (4.0-5.4) 10^6/ul Hgb (12.0-16.0) g/dl Hct (35-47) % MCV (80-97) fL MCH (27-31) pg MCHC (31-36) g/dl RDW (10.5-15) % Plt Count (150-450) 10^3/ul MPV (7.4-10.4) um3 Neut % (Auto) (38-83) % Lymph % (Auto) (25-47) % Hidalgo % (Auto) (1-9) % Eos % (Auto) (0-6) % Baso % (Auto) (0-2) % Absolute Neuts (auto) (1.5-7.7) 10^3/ul Absolute Lymphs (auto) (1.0-4.8) 10^3/ul Absolute Monos (auto) (0-0.8) 10^3/ul Absolute Eos (auto) (0-0.6) 10^3/ul Absolute Basos (auto) (0-0.2) 10^3/ul Absolute Nucleated RBC 10^3/ul Nucleated RBC % INR (Anticoag Therapy) (0.77-1.02) APTT 33.7 (26.0-36.3) seconds Sodium (133-145) mmol/L Potassium Chloride (101-111) mmol/L Carbon Dioxide (22-32) mmol/L Anion Gap (2-11) mmol/L BUN (6-24) mg/dL Creatinine (0.51-0.95) mg/dL Est GFR ( Amer) (>60) Est GFR (Non-Af Amer) (>60) BUN/Creatinine Ratio (8-20) Glucose (70-100) mg/dL Hemoglobin A1c 6.3 H (4.0-5.6) % Lactic Acid (0.5-2.0) mmol/L Calcium (8.6-10.3) mg/dL Total Bilirubin (0.2-1.0) mg/dL AST ALT (7-52) U/L Alkaline Phosphatase (34-104) U/L Troponin I (<0.04) ng/mL C-Reactive Protein (< 5.00) mg/L B-Natriuretic Peptide ( - 100) pg/mL Total Protein (6.4-8.9) g/dL Albumin (3.2-5.2) g/dL Globulin (2-4) g/dL Albumin/Globulin Ratio (1-3) Triglycerides mg/dL Cholesterol mg/dL LDL Cholesterol mg/dL HDL Cholesterol mg/dL Procalcitonin (<0.6) ng/mL Digoxin (0.8-2.0) ng/ml Influenza A (Rapid) Negative (Negative) Influenza B (Rapid) Negative (Negative) Result Diagrams: 04/08/17 05:25 04/08/17 05:25 Lab Statement: Any lab studies that have been ordered have been reviewed, and results considered in the medical decision making process. - Radiology CXR Xray Interpretation: No Acute Changes - 1. CARDIOMEGALY. 2. PULMONARY INTERSTITIAL EDEMA. 3. RIGHT LOWER LUNG CONSOLIDATION. 4. RECOMMEND FOLLOW-UP UNTIL RESOLUTION TO UNDERLYING PULMONARY PARENCHYMAL PATHOLOGY. Dr. Shanks has reviewed this report. Radiology Interpretation Completed By: Radiologist - Additional Comments Diagnostic Additional Comments: EKG obtained at 11:20. Rate: 113, tachycardia. Impression: A-Fib with RVR. RBBB. Non-specific ST depressions anterolaterally. EKG obtained at 15:24. Rate: 78, normal. Impression: A-fib. RBBB. Nonspecific anterolateral changes. PVCs. Course/Dx - Course Course Of Treatment: Ms. Pierce has had chest pain for 3-4 days and is now SOB. She had an ecg that showed A-fib with RVR and RBBB with ST depressions anteriorly concerning for ischemia. Her initial troponin was 10. She slowed down well with a dose of metoprolol. She had evidence for CHF clinically and on her labs and CXR. Dr. Ulloa was consulted and she was admitted to the ICU by the hospitalist. - Diagnoses Provider Diagnoses: NSTEMI (non-ST elevated myocardial infarction), CHF (congestive heart failure) , Atrial fibrillation - Physician Notifications Discussed Care of Patient With: Magdaleno Ulloa Time Discussed With Above Provider: 15:57 Instructed by Provider To: Other - Dr. Ulloa, cardiology, recommends admission to [facility]. - Critical Care Time Critical Care Time: 30-74 min Discharge - Discharge Plan Condition: Fair Disposition: ADMITTED TO [facility] documentation as recorded by the Ani sweet Thomas accurately reflects the service I personally performed and the decisions made by me, Sony Shanks MD.
[2017-04-08 13:06] LABS: INR 2.56 (0.77-1.02)
[2017-04-08 16:05] VITALS: BP 113/87
[2017-04-08] MEDS ORDERED: Warfarin TAB(*) 5 MG PO SCH (17:00)
--- NOTE | 2017-04-09 02:39 | TRS ---
CC: Dr. Ace; Dr. Morrow; Dr. Mota; Dr. Milton Kang, Cardiology, [facility] * TRANSFER SUMMARY: DATE OF ADMISSION: 04/07/17 DATE OF DISCHARGE AND PLANNED TRANSFER TO [facility]: 04/08/17 PRIMARY CARE PROVIDER: Dr. Ace. DISCHARGE DIAGNOSES: 1. Acute congestive heart failure due to suspected acute mitral regurgitation subsequent to non-ST elevation myocardial infarction that occurred probably 4 to 5 days prior to the patient's presentation. 2. Leukocytosis likely related to stress due to the cardiac events above. 3. Elevated creatinine with a creatinine of 1.3 at presentation, 1.4 on the day of transfer with unknown baseline, suspected chronic kidney disease. SECONDARY DIAGNOSES: 1. History of chronic atrial fibrillation. 2. History of congestive heart failure. 3. History of coronary artery disease and myocardial infarction in 2007. 3. History of asthma. MEDICATIONS: That the patient is receiving at the time of transfer right now included: 1. Aspirin 81 mg daily. 2. Albuterol inhaler on a p.r.n. basis. 3. Lipitor 40 mg daily. 4. Vitamin D3 1000 units daily. 5. Digoxin 0.125 mg daily. 6. Furosemide 20 mg IV. The patient received the dose today and a dose yesterday as well as a dose of Bumex yesterday. 7. Guaifenesin ER 1200 mg b.i.d. 8. Heparin drip. 9. The patient was treated briefly with levofloxacin that was discontinued prior to transfer. 10. Mag sulfate, the patient received 2 g IV x1. 11. Dulera 200/5 two puffs inhalation b.i.d. 12. Coumadin 5 mg daily. LABORATORY DATA AND STUDIES PERFORMED DURING THE HOSPITAL STAY: On 04/07/17, the patient's PTT on heparin drip was 116. Subsequently, the heparin drip is held right now. On 04/08/17, sodium of 133, potassium 3.8, chloride 97, carbon dioxide 29, BUN 22, creatinine 1.43, magnesium of 1.7. The patient's troponins peaked on 04/07/17 at 10.4. Today, the patient's troponin is 6.9. CBC on 04/07/17 shows a white blood cell count of 13.0, hemoglobin of 11.5, hematocrit of 36, and platelets of 116. Venous Doppler study obtained on 04/07/17 showed "no evidence of right or left lower extremity DVT." CT angiogram of the chest obtained on 04/07/17, impression: "No CT evidence of PE. Patchy ground-glass densities as well as pleural effusions could be seen in the setting of cardiogenic pulmonary edema. Further evidence of congestive heart failure as intravenously injected contrast reflux into the hepatic veins. The mildly enlarged right main stem pulmonary artery could be seen in the setting of pulmonary arterial hypertension." The patient's echocardiogram obtained on 04/07/17 showed EF of 55%. There was septal flattening of the interventricular septum consistent with right ventricular volume and pressure overload. The left atrium was severely dilated and right ventricle was mildly dilated. The right arterial cavity size is severely dilated with mild aortic regurgitation and mild mitral valve prolapse, [id number] mitral regurgitation. There is severe tricuspid regurgitation and moderate-to- severe pulmonary hypertension. The patient's echocardiogram showed atrial fibrillation with a heart rate of 78 beats per minute, right bundle-branch block, deep inverted negative T waves in leads V1 to V6. HOSPITALIZATION COURSE: Faith Pierce is a 81-year-old female with a history of chronic atrial fibrillation, on Coumadin with INR on the day of presentation was 1.8 and today's INR is still pending. The patient complained of shortness of breath and presented to the ED. She also was noted to have chest pain 4 or 5 days prior to presentation to the ED. She remembered that the chest pain radiated to her jaw, left side of the neck and left arm, and felt like "she is going to ." Despite that, she did not come to the emergency department at that time and she waited until she got severe dyspnea and presented with hypoxemia to the emergency department on 04/07/17. At this point, the patient was noted to have a troponin of 10. Her echocardiogram showed severe mitral regurgitation. Her chest x-ray showed pulmonary edema. Initially, it was thought that she has leukocytosis may be due to underlying pneumonia and was treated with Levaquin, but that was stopped once the patient's procalcitonin level was negative at 0.1. The patient also had fasting lipid profile, which showed triglycerides of 70, cholesterol total of 144, LDL of 75 and HDL of 55. The patient was noted to have chronic atrial fibrillation. She was admitted to the intensive care unit and with continuation of her hypoxemia to the point that she needed to be placed on 20 L of Vapotherm. Currently, she is comfortable on 20 L of Vapotherm. She received 2 mg of Bumex IV and several 20 mg IV doses of furosemide. She had mild diuresis with noted in the morning diuresis total of 460 mL. She continued to have severe dyspnea. Further diuresis was limited by low systolic pressures with systolic blood pressure ranging in between 101 to 113. The patient was evaluated by Dr. Mota from Cardiology who recommended for the patient to go to a tertiary care center where she could be evaluated for high-risk cardiac catheterization as well as possibility of mitral valve repair. The patient was happy with the decision since she is a patient of Dr. Morrow, who is from the [facility]. Prior to the patient's transfer, the patient is going to be taken off Vapotherm on 100% nonrebreather mask and observed for stability before ambulance transfer. PHYSICAL EXAM AT THE TIME OF TRANSFER: Blood pressure of 113/70, heart rate of 88 and regular, respiratory rate 19, oxygen saturation 95% on 20 L of oxygen via Vapotherm, temperature of 98.4. General: The patient is a very pleasant 81 -year- old female who is not in acute distress. Alert, awake, and oriented x3. HEENT: Head: Atraumatic, normocephalic. Eyes: Pupils are equal, reactive to light and accommodation. Oropharynx is clear. Mucosa moist. Neck: Supple. Positive for JVD bilaterally. Respiratory: Crackles at bilateral bases. Cardiovascular: Irregularly irregular rhythm with 2/6 systolic ejection murmur noted on auscultation of the apex. Abdomen: Soft, nontender. Bowel sounds are present in all 4 quadrants. Extremities: There is trace bilateral pedal edema. Pulses are +2 bilaterally. There is no clubbing or cyanosis. Neuro Evaluation: Speech clear. Cranial nerves II through XII grossly intact. Motor strength is 5/5 bilaterally. On evaluation of the skin, no ecchymotic areas or rashes noted. The patient is going to be transferred on heparin drip, which was started at admission. It is noted that the patient's INR is pending at the time of dictation. If her INR is above 2, her heparin drip is going to be stopped. Dr. Mota arranged the transfer of the patient to [facility] in [place], [place] and Dr. Milton Kang was kind enough to accept the patient's transfer. Please note this is a short summary of the patient's hospitalization. Please refer to full medical record for details. TIME SPENT: Approximately 50 minutes were spent on the patient's transfer. [id number]/[facility] #: [id number] MTDD
== END 2017-04-08 17:20 | disposition short-term general hospital (02) | DRG 282 ==
LOC: ED 10:36 → ICU 19:40
PROVIDERS: ADMIT Internal Medicine; ATTEND Internal Medicine
DX: I21.4 Non-ST elevation (NSTEMI) myocardial infarction (principal); R06.09 Other forms of dyspnea; I08.1 Rheumatic disorders of both mitral and tricuspid valves; I27.20 Pulmonary hypertension, unspecified; I48.2 Chronic atrial fibrillation; I11.0 Hypertensive heart disease with heart failure; I50.9 Heart failure, unspecified; D72.828 Other elevated white blood cell count; R82.99 Other abnormal findings in urine; N18.9 Chronic kidney disease, unspecified; J45.909 Unspecified asthma, uncomplicated; I45.10 Unspecified right bundle-branch block; I25.10 Atherosclerotic heart disease of native coronary artery without angina pectoris; I25.2 Old myocardial infarction; Z79.01 Long term (current) use of anticoagulants; Z79.899 Other long term (current) drug therapy; Z82.49 Family history of ischemic heart disease and other diseases of the circulatory system; Z80.1 Family history of malignant neoplasm of trachea, bronchus and lung; Z87.891 Personal history of nicotine dependence
CPT/HCPCS: 36415; 71045; 71275; 80048; 80053; 80061; 80162; 81003; 81015; 83036; 83605; 83735; 83880; 84145; 84484; 84520; 85025; 85610; 85730; 86140; 87040; 87502; 87641; 93005; 93306; 93970; 94640; 99284; A9270-GY; J1160; J1644; J1940; J2270; J2405; J3475; J3490; Q9967

== ENCOUNTER 2017-05-19 16:15 | Inpatient (IN) | payer MEDICARE, OTHER ==
[2017-05-19] MEDS ORDERED: Magnesium Sulfate 2 GM IV* 2 GM/50 ML BAG ONE (16:21)
[2017-05-19] MEDS ORDERED: Magnesium Sulfate 2 GM IV* 2 GM/50 ML BAG IVPB ONE (16:23)
[2017-05-19] MEDS ORDERED: Furosemide IV* 10 MG/ML VIAL (40 MG) IV ONE (16:23)
[2017-05-19] MEDS ORDERED: LORazepam INJ* 2 MG/ML 1 ML VIAL IV PUSH ONE (16:23)
[2017-05-19] MEDS ORDERED: methylPREDNISolone 125 MG* 2 ML VIAL IV ONE (16:23)
[2017-05-19] MEDS ORDERED: Albuterol/Ipratropium NEB.SOL* Albuterol 2.5 MG/Ipratropium 0.5 MG 3 ML INH ONE (16:24)
[2017-05-19] MEDS ORDERED: Nitroglycerin 2% OINT* 1 GM PAK TOPICAL ONE (16:24)
[2017-05-19] MEDS ORDERED: Furosemide IV* 10 MG/ML VIAL (40 MG) ONE (16:24)
[2017-05-19] MEDS ORDERED: Nitroglycerin 2% OINT* 1 GM PAK ONE (16:25)
--- NOTE | 2017-05-19 17:07 | RAD ---
Indication: Respiratory distress. Agitated. History of A. fib and pulmonary edema. Comparison: April 08, 2017 Technique: Upright AP 1635 hours Report: Cardiomegaly, prominent ill-defined central pulmonary vasculature with cephalization. Alveolar opacities in the mid to lower lung zones and diffuse prominence of the interstitial markings. RIGHT larger than LEFT small pleural effusions. Negative for pneumothorax. IMPRESSION: Alveolar and interstitial pulmonary edema similar to the prior exam. Associated RIGHT larger than LEFT small dependent pleural effusions.
[2017-05-19] MEDS ORDERED: Piperacillin/Tazobac ADVAN(*) 3.375 GM in NS 0.9% 100 ML* 100 ML IVPB ONE (17:45)
[2017-05-19 17:49] LABS: ABS Basophils 0.1 10^3/ul (0-0.2); ABS Eosinophils 0.1 10^3/ul (0-0.6); ABS Lymphocytes 1.8 10^3/ul (1.0-4.8); ABS Monocytes 0.8 10^3/ul (0-0.8); ABS Neutrophils 7.4 10^3/ul (1.5-7.7); ABS Nucleated RBC 0 10^3/ul; Eosinophil % 0.8 % (0-6); Hematocrit 31 % (35-47); Lymphocyte % 17.6 % (25-47); Mean Corpuscular HGB Conc 32 g/dl (31-36); Mean Corpuscular Hemoglobin 31 pg (27-31); Mean Corpuscular Volume 97 fL (80-97); Mean Platelet Volume 11 um3 (7.4-10.4); Nucleated Red Blood Cells % 0.1; Platelet Count 153 10^3/ul (150-450); Red Blood Count 3.22 10^6/ul (4.0-5.4); Red Cell Distribution Width 16 % (10.5-15); White Blood Count 10.1 10^3/ul (3.5-10.8)
[2017-05-19 17:52] LABS: INR 2.26 (0.77-1.02)
[2017-05-19] MEDS ORDERED: Succinylcholine* 20 MG/ML 10 ML VIAL ONE (18:00)
[2017-05-19] MEDS ORDERED: Propofol* 500 MG/50 ML BTL IV SCH (18:00)
[2017-05-19] MEDS ORDERED: Albuterol/Ipratropium NEB.SOL* Albuterol 2.5 MG/Ipratropium 0.5 MG 3 ML INH SCH (18:00)
[2017-05-19] MEDS ORDERED: Etomidate* 2 MG/ML 20 ML VIAL (40 MG) ONE (18:00)
[2017-05-19] MEDS ORDERED: Midazolam* 1 MG/ML 10 ML VIAL (10 MG) ONE (18:00)
[2017-05-19] MEDS ORDERED: LORazepam INJ* 2 MG/ML 1 ML VIAL ONE (18:13)
[2017-05-19] MEDS ORDERED: Propofol* 100 ML ONE ×2 (18:39→23:59)
[2017-05-19] MEDS ORDERED: Albuterol/Ipratropium NEB.SOL* Albuterol 2.5 MG/Ipratropium 0.5 MG 3 ML INH PRN (19:36)
--- NOTE | 2017-05-19 19:44 | RAD ---
Indication: Post intubation and orogastric tube placement. Recurrent pulmonary edema. Comparison: 1634 hours May 19, 2017 Technique: Upright AP 1900 hours Report: Endotracheal tube tip 4 cm above the Julieta. Orogastric tube passes to the stomach and outside the [id number] caudally. Mild improvement in perihilar airspace opacities compared with the earlier exam of the same date. Persistent RIGHT larger than LEFT small dependent pleural effusions. Negative for pneumothorax. IMPRESSION: Interval improvement in magnitude of pulmonary edema compared with the earlier exam of the same date.
[2017-05-19] MEDS ORDERED: NS 0.9% 100 ML* 100 ML ONE (19:53)
[2017-05-19] MEDS ORDERED: KCL 20 MEQ/100 ML IVPREMIX* 20 MEQ/100 ML BAG IV SCH (20:00)
[2017-05-19] MEDS: Potassium Chloride IV* 20 MEQ in NS 0.9% 100 ML* 100 ML IVPB SCH ×2 (20:49→23:07)
[2017-05-19] MEDS ORDERED: Diltiazem TAB* 60 MG PO ONE (22:00)
--- NOTE | 2017-05-19 22:38 | HP ---
ADMISSION HISTORY AND PHYSICAL: DATE OF ADMISSION: 05/19/17 REASON FOR ADMISSION: Acute pulmonary edema and respiratory failure. HISTORY OF PRESENT ILLNESS: This patient is a 81-year-old female with a past medical history of coronary artery disease, mitral insufficiency, asthma, hypertension, and atrial fibrillation, who was most recently in this hospital in March of this year with chest pain, severe mitral regurgitation, and pulmonary edema - at that time, she was transferred to [facility] for cardiac catheterization. The results of that hospitalization are unknown at this time, and the patient now comes to the emergency room with shortness of breath and on chest x- ray, has pulmonary edema. The patient required intubation in the ED room and was brought directly to the intensive care unit. The patient denied recent chest pain, cough, sputum, fever.. MEDICATIONS: Outpatient meds: 1. Digoxin 0.125 mg daily. 2. Warfarin 5 mg daily. 3. Diltiazem 300 mg daily. 4. Losartan 320 mg daily. 5. Lasix 20 mg daily. 6. Vitamin D 2000 units daily. 7. Albuterol inhaler 2 puffs q.4 hours p.r.n. ALLERGIES: There are no known drug allergies. REVIEW OF SYSTEMS: Noncontributory. PHYSICAL EXAMINATION GENERAL: The patient was in expiratory distress prior to intubation and following intubation is on propofol for sedation. VITAL SIGNS: Temp 100.2, blood pressure 130/90, heart rate 90, respirations 14 per minute on the ventilator, O2 sat 100% with an FiO2 of 60%. HEENT: Pupils are mid position and sluggishly reactive. There is no facial asymmetry. Oropharynx is clear. NECK: Supple and there is no apparent JVD. LUNGS: Diminished breath sounds and some scattered crackles bilaterally. CARDIAC: There is a harsh early systolic murmur heard along the left sternal border. ABDOMEN: Not distended. Bowel sounds present. EXTREMITIES: Warm, noncyanotic, and not edematous. DIAGNOSTIC STUDIES/LAB DATA: Admission labs: White count 10.1, hemoglobin 10.0, platelets 153K. Sodium is 136, potassium is 3.2, chloride 99, CO2 27, BUN 24, creatinine 1.26, glucose 206, lactate 2.8. Total bilirubin 1.5. BNP 711. Blood gases before a trial of BiPAP revealed a PCO2 of 78, PO2 of 62, pH of 7.16. After BiPAP, the PO2 was 67, PCO2 was 54, and pH was 7.34. EKG shows atrial fibrillation with an average ventricular rate of 100 and a right bundle branch block. Chest x-ray shows cardiomegaly and diffuse pulmonary infiltrates in both lungs, more prominent in the peripheral and central lung bhatti. There is also a right pleural effusion. IMPRESSION: The most likely scenario here is acute cardiogenic pulmonary edema from mitral insufficiency. The chest x-ray could represent ARDS, but the patient does not have signs of sepsis or systemic inflammation. MANAGEMENT PLAN: We will try diuretics and mechanical ventilation. Will get a transthoracic ECHO and consult the cardiology service if the patient has severe mitral regurgitation. There are no family members present with the patient at the time of admission. CRITICAL CARE TIME: 70 minutes. [id number]/[facility] #: [id number] BASIL
[2017-05-19] MEDS: Metoprolol Tartrate TAB* 25 MG PO SCH (23:04)
[2017-05-20] MEDS: Propofol* 1000 MG (10 MG/ML 100 ml) @ Per Protocol (in ICU Pyxis) IV SCH ×4 (02:44→19:22)
[2017-05-20 07:50] LABS: EGFR Non-African American 41.7 (>60)
[2017-05-20 07:51] LABS: INR 2.15 (0.77-1.02)
[2017-05-20] MEDS: Diltiazem CD CAP* 180 MG PO SCH (08:40)
[2017-05-20] MEDS: Metoprolol Tartrate TAB* 25 MG PO SCH ×2 (08:40→20:17)
[2017-05-20] MEDS ORDERED: methylPREDNISolone SOD 40 MG* 1 ML VIAL IV SCH (09:00)
--- NOTE | 2017-05-20 09:03 | ECHO ---
Patient: MADDI ALEXANDRE [facility] Rec#: [id number] : 1935 Date: 05/20/2017 Age: 81y Height: 167.64 cm / 66.0 in Weight: 72.57 kg / 159.9 lbs Sex: F BSA: 1.82 Room#: ICU-2 Admit Date#: 05/19/2017 Type: Inpatient Referring: Juan Luis Mahmood MD Reading: Juan Luis Rowan MD Cathead Worker: Raya Wu RDCS CC: Vicky Ace MD Transthoracic Echocardiogram Indication: Acute pulmonary edema, MR BP: 105/74 HR: 61 Rhythm: A-Fib Findings History: CHF, a-fib, smoker, asthma, CAD, MR, HTN. The patient is sedated, intubated, and mechanically ventillated during the study. Technical Comments: The study quality is good. Completed at 0830. Left Ventricle: Septal wall hypertrophy is observed. Mild global hypokinesis of the left ventricle is observed. There is mildly decreased left ventricular systolic function. The estimated ejection fraction is 45-50%. There is septal flattening of the interventricular septum consistent with right ventricular volume or pressure overload. The assessment of diastolic function is non-diagnostic. Left Atrium: The left atrium is severely dilated. Right Ventricle: The right ventricle is moderately dilated. The right ventricular global systolic function is mildly reduced. Right Atrium: The right atrial cavity size is severely dilated. Aortic Valve: The aortic valve is trileaflet. The aortic valve leaflets are mildly thickened. There is aortic annular calcification. There is mild aortic regurgitation. There is no evidence of aortic stenosis. Mitral Valve: The mitral valve leaflets are mildly thickened. There is mild mitral valve prolapse. There is moderate to severe mitral regurgitation. Given the eccentric nature of the jet and coanda effect the degree of regurgitation may be severe. There is no evidence of mitral stenosis. Tricuspid Valve: The tricuspid valve leaflets are normal. There is severe tricuspid regurgitation. Unable to estimate the right ventricular systolic pressure. There is evidence of severe pulmonary hypertension.Of note the patient is on a ventilator which may falsely increase the level of her pulmonary HTN. There is no tricuspid stenosis. Pulmonic Valve: The pulmonic valve appears normal. There is mild pulmonic regurgitation. There is no pulmonic stenosis. Pericardium: There is no significant pericardial effusion. Aorta: There is mild dilatation of the ascending aorta. The aortic arch is not well visualized. The aortic root is normal in size. Pulmonary Artery: The main pulmonary artery appears normal. Venous: Unable to accurately comment on the size collapsibility of the IVC as the patient in known to be on mechanical ventilation. Conclusions There is mildly decreased left ventricular systolic function. The estimated ejection fraction is 45-50%. There is septal flattening of the interventricular septum consistent with right ventricular volume or pressure overload. There is moderate to severe mitral regurgitation. Given the eccentric nature of the jet and coanda effect the degree of regurgitation may be severe. The left atrium is severely dilated. There is severe tricuspid regurgitation. There is evidence of severe pulmonary hypertension.Of note the patient is on a ventilator which may falsely increase the level of her pulmonary HTN. There is mild pulmonic regurgitation. There is mild dilatation of the ascending aorta. Compared to report of study from 04/07/2017 the overall LV systolic function appears less (was reported 50-55%,closer to 55%). The pulmonary HTN is worse but may reflect the patient on respirator (it was not noted as to whether the patient was on a ventilator during the last study). Measurements Name Value Normal Range RVIDd (AP) 2D 3.6 cm (0.9 - 2.6) RVDdMajor (2D) 5.5 cm (2.2 - 4.4) RAd ISD 4CH 7.9 cm (3.4 - 4.9) RA (A4C)W 5.9 cm (2.9 - 4.6) IVSd (2D) 1.2 cm (0.6 - 1) LVPWd (2D) 0.9 cm (0.6 - 1) LVIDd (2D) 5.2 cm (3.6 - 5.4) LVIDs (2D) 3.9 cm - LV FS (2D) 25 % (25 - 45) Aortic Annulus 1.7 cm (1.4 - 2.6) Ao root diameter (2D) 2.8 cm (2.1 - 3.5) Ascending Ao 3.7 cm (2.1 - 3.4) LA dimension (AP) 2D 4.5 cm (2.3 - 3.8) LAd ISD 4CH 7.7 cm (2.9 - 5.3) LA ISD 4CH W 5.8 cm (2.5 - 4.5) Name Value Normal Range LA ESV SP 4CH (A/L) 136 ml - LA ESV SP 2CH (A/L) 86 ml - LA ESV BP (A/L) 131 ml - LA ESV BP (A/L) index 72 ml/m2 - LA ESV SP 4CH (MOD) 124 ml - LA ESV SP 2CH (MOD) 84 ml - Name Value Normal Range MV E-wave Vmax 1.01 m/sec - MV deceleration time 174.1 msec - MV A-wave Vmax 0.07 m/sec - MV E:A ratio 122 ratio - LV septal e' Vmax 0.06 m/sec - LV lateral e' Vmax 0.19 m/sec - LV E:e' septal ratio 16.83 ratio - LV E:e' lateral ratio 5.32 ratio - Name Value Normal Range AV Vmax 1.44 m/sec - AV VTI 24 cm - AV peak gradient 8.34 mmHg - AV mean gradient 3.94 mmHg - LVOT Vmax 0.79 m/sec - LVOT VTI 11.52 cm - LVOT peak gradient 2.55 mmHg - LVOT mean gradient 1.17 mmHg - Name Value Normal Range MR Vmax 4.25 m/sec - MR VTI 119.3 cm - MR flow (PISA) 71.4 ml/sec - MR ERO 0.17 cm2 - MR PISA radius 0.5 cm - MR alias Vmax 42 cm/sec - Name Value Normal Range TR Vmax 3.7 m/sec - TR peak gradient 55 mmHg - Name Value Normal Range PV Vmax 0.95 m/sec - PV peak gradient 3.7 mmHg - IA end-diastolic Vmax 1.02 m/sec -
--- NOTE | 2017-05-20 14:26 | ED ---
Srikanth Pinon Angela scribed for Henry Mcnamara MD on 05/19/17 at 1624 . Respiratory - HPI Summary HPI Summary: This pt is a 81 y/o female presenting to [facility] via EMS for respiratory distress. EMS reports the pt wears 2L of oxygen at home. EMS states pt was saturating at 86% with 2L of O2. En route, EMS administered duoneb which improved saturation but not lungs. EMS states pt is still unable to take a deep breath. EMS reports blood pressure systolic of 146. Pt had episode of cardiac event 1 month ago and was admitted to [facility], per EMS. She was in rehab for this cardiac event and has been home for a couple of days now. Pt does take lasix, but does not know when was the last time she took it per EMS. PMHx: CHF, asthma, afib. Denies hx of COPD. HPI IS LIMITED DUE TO LEVEL 5 CAVEAT - pt is in respiratory distress. - History of Current Complaint Stated Complaint: RESPIRATORY DISTRESS Hx Obtained From: Patient, EMS Hx From Patient Unobtainable Due To: Other - pt is in respiratory distress Onset/Duration: Lasting Hours, Still Present Timing: Constant Current Severity: Severe Character: Wheezing, Dyspnea at Rest Sputum Amount: None Aggravating Factor(s): Nothing Alleviating Factor(s): Nothing Associated Signs and Symptoms: Wheezing, Dyspnea - Allergy/Home Medications Allergies/Adverse Reactions: Allergies Allergy/AdvReac Type Severity Reaction Status Date / Time No Known Allergies Allergy Verified 04/07/17 13:26 Home Medications: Home Medications Metoprolol Tartrate TAB* [Lopressor TAB*] 12.5 mg PO BID 05/19/17 [History Confirmed 05/19/17] Simvastatin TAB(NF) [Zocor(NF)] 20 mg PO BEDTIME 05/19/17 [History Confirmed ] Warfarin TAB(*) [Coumadin TAB(*)] 3 mg PO EVERY OTHER DAY 05/19/17 [History Confirmed 05/19/17] Warfarin TAB(*) [Coumadin TAB(*)] 4 mg PO EVERY OTHER DAY 05/19/17 [History Confirmed 05/19/17] dilTIAZem HCl [Diltiazem HCl ER] 90 mg PO Q12H 05/19/17 [History Confirmed 05/19] PMH/Surg Hx/FS Hx/Imm Hx Endocrine/Hematology History: Denies: Hx Diabetes Cardiovascular History: Reports: Hx Atrial Fibrillation, Hx Congestive Heart Failure, Hx Coronary Artery Disease, Hx Hypertension Respiratory History: Reports: Hx Asthma, Other Respiratory Problems/Disorders - PULMONARY EDEMA History: Denies: Hx Renal Disease Musculoskeletal History: Reports: Hx Back Problems - Intermittent pain from fall in Sensory History: Reports: Hx Contacts or Glasses Denies: Hx Hearing Aid Opthamlomology History: Reports: Hx Contacts or Glasses - Surgical History Surgery Procedure, Year, and Place: Left ear surgery (1969) - Family History Known Family History: Positive: Cardiac Disease - Social History Alcohol Use: None Hx Substance Use: No Substance Use Type: Reports: None Hx Tobacco Use: Yes Smoking Status (MU): Former Smoker Review of Systems - ROS Summary Review of Systems Summary: ROS IS LIMITED DUE TO LEVEL 5 CAVEAT - pt is in respiratory distress Negative: Fever, Skin Diaphoresis Positive: Shortness Of Breath All Other Systems Reviewed And Are Negative: No Physical Exam - Summary Physical Exam Summary: Constitutional: Well-developed, Well-nourished, Alert. Pt is in respiratory distress speaking one word sentence fragments. Skin: Warm, Dry HENT: Normocephalic; Atraumatic Eyes: Conjunctiva normal Neck: Musculoskeletal ROM normal neck. (-) JVD, (-) Stridor, (-) Tracheal deviation Cardio: Rhythm regular, rate normal, Heart sounds normal; Intact distal pulses; The pedal pulses are 2+ and symmetric. Radial pulses are 2+ and symmetric. (-) Murmur Pulmonary/Chest wall: Pt is tachypneic and agitated. One word sentence fragments. Pt is tripoding. Inspiratory and expiratory wheezes. Extremely diminished lung sounds. Crackles in the right lung base and the left lung base. Abd: Soft, (-) Tenderness, (-) Distension, (-) Guarding, (-) Rebound Musculoskeletal: 1+ pitting edema in bilateral lower extremities Lymph: (-) Cervical adenopathy Neuro: Alert, Oriented x3 Psych: Mood and affect Normal Triage Information Reviewed: Yes Vital Signs Reviewed: Yes Procedures - Intubation Time of Intubation: 18:15 - Dr. Mahmood and TAYLOR Torres were in attendance. Intubation Method: orotracheal Tube Size (cm): 7.0 Medications: Succinylcholine Breath Sounds after Intubation: right greater than left Intubation Complications: oral-unsuccessful attempt Post Intubation Xray: Yes Diagnostics - Laboratory Result Diagrams: 05/19/17 17:24 05/19/17 17:24 Lab Statement: Any lab studies that have been ordered have been reviewed, and results considered in the medical decision making process. - Radiology chest XR Xray Interpretation: Positive (See Comments) - IMPRESSION: Alveolar and interstitial pulmonary edema similar to the prior exam. Associated RIGHT larger than LEFT small dependent pleural effusions. Dr. Mcnamara has reviewed this radiology report. Radiology Interpretation Completed By: Radiologist - EKG 16:18 Cardiac Rate: Tachycardia EKG Rhythm: Atrial Fibrillation - at 100 bpm EKG Interpretation: worsening ST depression compared to 04/07/17. EKG Comparison: Other - worsening ST depression compared to 04/07/17. Re-Evaluation - Re-Evaluation First Eval Re-Evaluation Time: 16:34 Comment: Work up breathing has decreased. Pt appears drowsy but is responsive to verbal stimulus. Second Eval Re-Evaluation Time: 17:14 Comment: Pt is still responding to loud verbal stimulus. Disposition - Course Course Of Treatment: Pt expressed she did not want to be intubated unless all other measures fail. In the ED course the pt was given Ativan, duoneb, solu- medrol, Lasix, magnesium sulfate. Labs, chest XR, and EKG were obtained. Test results show INR of 2.26, creatinine of 1.26, glucose of 206, ABG pH of 7.16, pCO2 of 78, pO2 of 62, O2 saturation of 89.7 currently on Bipap. I discussed pt care wt Dr. Mahmood, knotter hand, who came to see the pt in the ED. Intubation was performed using a glidescope, after informed verbal consent was obtained. Succinylcholine and etomidate were used. Glidescope failed and lost power. A second one was obtained immediately from the ICU. Breath sounds were greater on the right side. The tube was withdrawn to 21 cm at the lip line. Dr. Mahmood was also in attendance as well as TAYLOR Torres. Pt was admitted to the ICU services. - Diagnoses Provider Diagnoses: Acute respiratory failure, CHF exacerbation - Physician Notifications Discussed Care Of Patient With: Juan Luis Mahmood Time Discussed With Above Provider: 17:02 Instructed by Provider To: Other - I discussed pt care wtih Dr. Mahmood, knotter hand, who reports he will come see the pt in the ED. - Critical Care Time Critical Care Time: 75-104 min - 90 minutes Discharge - Discharge Plan Condition: Stable Disposition: ADMITTED TO [facility] documentation as recorded by the Srikanth sweet Angela accurately reflects the service I personally performed and the decisions made by me, Henry Mcnamara MD.
[2017-05-20] MEDS ORDERED: Warfarin TAB(*) 4 MG PO SCH (17:00)
[2017-05-20] MEDS ORDERED: Digoxin TAB* 0.125 MG PO SCH (17:00)
--- NOTE | 2017-05-20 17:59 | PN ---
Date of Service: 05/20/17 Critical Care Services: Patient remains on ventilator - cardiac ECHO shows severe MR and TR - cardiology service has evaluated patient - options for care are noninvasive mitral valve repair (elsewhere) or comfort care. Vital Signs: Temp Pulse Resp BP SpO2 FiO2 98.6 F 75 14 111/75 99 21 Physical Exam: Gen: Unresponsive (on propofol) HEENT:OT tube in place Lungs: occasonal wheeze Cardiac: Irreg rhythm Extremities:No cyanosis or edema Fluid Balance (Past 24 Hours): 05/20/17 06:59 Intake Total 414.7 Output Total 900 Balance -485.3 Weight 159 lb 2.78 oz Intake: IV Fluids 43.2 NS to Maintain IV Patency 43.2 IVPB 220 NS to Maintain IV Patency 220 Medicated IV 151.5 CC - Propofol/Diprivan 151.5 Oral 0 Output: Crespo 900 Labs: 05/20/17 07:29 INR (Anticoag Therapy) Sodium 137 Potassium 3.9 Chloride 102 Carbon Dioxide 27 Anion Gap 8 BUN 26 H Creatinine 1.24 H Est GFR ( Amer) 53.7 Est GFR (Non-Af Amer) 41.7 BUN/Creatinine Ratio 21.0 H Glucose 135 H Calcium 9.4 Troponin I 05/20/17 07:29 INR (Anticoag Therapy) 2.15 H Sodium Potassium Chloride Carbon Dioxide Anion Gap BUN Creatinine Est GFR ( Amer) Est GFR (Non-Af Amer) BUN/Creatinine Ratio Glucose Calcium Troponin I Studies: Cardiac ECHO - Results as mentioned. Nutrition: NPO Impression: Pumonary edema secondary to mitral insufficiency, in the absence of coronary artery disease. Plan: Will try to wean patient from ventilator to discuss Rx options. Patient's son to come in tomorrow AM for discussion of same. Critical Care Time: 35 minutes (not including time spent with patient's son).
--- NOTE | 2017-05-20 22:52 | CONS ---
CC: Dr. Ace; Dr. Vishal Morrow at [facility] * CARDIOLOGY CONSULTATION NOTE: DATE OF CONSULT: 05/20/17 INDICATION FOR CONSULTATION: Congestive heart failure, atrial fibrillation. HISTORY OF PRESENT ILLNESS: Patient is a 81-year-old female with a history of renal insufficiency, history of mitral regurgitation and congestive heart failure, who came to the emergency room because of severe shortness of breath. She was soon intubated for respiratory failure. She was admitted to the ICU overnight. I was asked to consult her in the morning. Patient was recently at [facility] in March of 2017. At that time , she had congestive heart failure and atrial fibrillation. An echocardiogram at that time showed near normal LV function with likely severe mitral regurgitation and severe tricuspid regurgitation. She had positive troponins at that time. She was transferred to [facility]. While there, she underwent a cardiac catheterization, which showed normal coronary arteries. She underwent a transesophageal echocardiogram, which showed severe mitral regurgitation and severe tricuspid regurgitation with moderate pulmonary hypertension. She was evaluated by Cardiothoracic Surgery for valve surgery and was deemed high risk. She was discharged from the hospital with a plan of having her be seen in [place] for potential MitraClip. She was discharged to a custodial. She was in the custodial for 1 month and then discharged home for financial reasons. She was home less than 3 days when she ended up having severe shortness of breath and presenting to the emergency room. PAST MEDICAL HISTORY: Significant for severe mitral regurgitation, severe tricuspid regurgitation, chronic atrial fibrillation, asthma, tobacco use, hypertension. PAST SURGICAL HISTORY: Tubal ligation and left ear surgery. OUTPATIENT MEDICATIONS: 1. Digoxin 125 mg a day. 2. Metoprolol tartrate 12.5 mg b.i.d. 3. Coumadin as directed. 4. Simvastatin 20 mg a day. 5. Diltiazem ER 120 mg q.12 hours. ALLERGIES: No known drug allergies. SOCIAL HISTORY: She lives alone. Her son is involved in her care. She denies tobacco or alcohol use. REVIEW OF SYSTEMS: Otherwise review of systems and past medical history could not be obtained. PHYSICAL EXAM: Patient is intubated in the intensive care unit. Temperature 98.6, heart rate is 67, blood pressure 95/70, respiratory rate is 14, oxygen saturation 96% on ventilator. Sclerae anicteric. Oropharynx could not be evaluated. Carotids could not be evaluated. Cardiac Exam: S1, S2 with a 3/6 systolic ejection murmur heard best at the apex. Lungs have vented breath sounds. Abdomen is soft, nontender, nondistended with normoactive bowel sounds. Extremities showed 2+ edema. She has 2+ pulses throughout. Patient is intubated and sedated. LABORATORY STUDIES: CBC: White count 10.1, hemoglobin 10, hematocrit 31, platelet count 153. Potassium 3.9, BUN 26, creatinine 1.2. AST and ALT are within normal limits. BNP is 711. INR was 2.15. I did get all the records from her last hospitalization at [facility]. I personally reviewed them. I personally contacted Dr. Morrow regarding her care. IMPRESSION: This is a 81-year-old female with severe mitral regurgitation, severe tricuspid regurgitation, admitted with flash pulmonary edema and intubated because of respiratory failure. Patient's echocardiogram today shows an ejection fraction of 50% with severe mitral regurgitation and severe tricuspid regurgitation. Estimated PA systolic pressure is to be about 50 mmHg. RECOMMENDATIONS: For now, my recommendation is to continue to treat the patient aggressively. Patient will be weaned off the ventilator as she is able to. Patient will be started on afterload reducing agents as she has tolerated. The patient has low blood pressure to start. In general, I think patient needs to have mitral and tricuspid valve surgery or be placed on hospice care. Patient will be evaluated once she is extubated for transfer either to [facility] or to [facility] for evaluation. Again, patient has already been deemed high risk by [facility]; however, I think the patient has a reasonable risk given that she has normal coronary arteries, normal LV function, and only mildly elevated creatinine. Further recommendations depending on her hospital course. [id number]/[facility] #: [id number] [facility] CENTERSerge
[2017-05-21] MEDS: Propofol* 1000 MG (10 MG/ML 100 ml) @ Per Protocol (in ICU Pyxis) IV SCH (01:33)
[2017-05-21] MEDS: Metoprolol Tartrate TAB* 25 MG PO SCH (08:20)
[2017-05-21] MEDS: Diltiazem CD CAP* 180 MG PO SCH (08:20)
[2017-05-21] MEDS ORDERED: methylPREDNISolone 125 MG* 2 ML VIAL IV SCH (09:00)
[2017-05-21] MEDS ORDERED: LORazepam INJ* 2 MG/ML 1 ML VIAL ONE (10:39)
--- NOTE | 2017-05-21 15:01 | PN ---
Subjective Date of Service: 05/21/17 - CC: SOB Interval History: The patient was extubated this AM. The patient's son was present. The patient was tachypnic and it was hard for her to talk. She stated it was hard to breath, she was not in pain. She was able to ask for a tissue for her runny nose. Medications Active Medications: Albuterol/Ipratropium (Duoneb (Albuterol 2.5 Mg/Ipratropium 0.5 Mg)) 1 neb INH Q6H PRN PRN Reason: SOB/WHEEZING Digoxin (Lanoxin Tab*) 0.125 mg PO DAILY@1700 [facility] Last Admin: 05/20/17 17:48 Dose: 0.125 mg Diltiazem HCl (Cardizem Cd Cap*) 180 mg PO DAILY [facility] Last Admin: 05/21/17 08:20 Dose: Not Given Metoprolol Tartrate (Lopressor Tab*) 12.5 mg PO BID [facility] Last Admin: 05/21/17 08:20 Dose: Not Given Warfarin Sodium (Coumadin Tab(*)) 3 mg PO EVERY OTHER DAY@1700 [facility] PRN Reason: Protocol Warfarin Sodium (Coumadin Tab(*)) 4 mg PO EVERY OTHER DAY@1700 [facility] PRN Reason: Protocol Last Admin: 05/20/17 17:48 Dose: 4 mg Objective Vital Signs: Temp Pulse Resp BP Pulse Ox 99.1 F 99 24 114/80 99 05/21/17 10:32 05/21/17 14:01 05/21/17 14:01 05/21/17 14:00 05/21/17 14:01 Oxygen Devices in Use Now: Nasal Cannula Appearance: Elderly female, seated at 60 degrees, tachypnic, appears chronically ill and working to breath. Eyes: No Scleral Icterus, PERRLA Ears/Nose/Mouth/Throat: Clear Oropharnyx, Mucous Membranes Moist Neck: NL Appearance and Movements; NL JVP, No Thyroid Enlargement, Masses Respiratory: - - Right lung with diffuse rubs and decreased breath sounds. Left lung clear, diminished in the base, good effort. Cardiovascular: - - irregularly irregular, pansystolic murmer, 4/6 heard best at the base and axilla, wide area of radiation. Abdominal: NL Sounds; No Tenderness; No Distention Extremities: - - trace edema of the legs. Neurological: - - hard to evaluate due to physical stress, but appropriate, knows son, when she is able to talk her speech is clear and answers and questions appropriate. Laboratory Results: 05/20/17 07:29 INR (Anticoag Therapy) 2.15 (0.77-1.02) H 05/20/17 07:29 APTT 41.0 seconds (26.0-36.3) H 05/19/17 17:24 Total Bilirubin 1.50 mg/dL (0.2-1.0) H 05/19/17 17:24 AST 23 U/L (13-39) 05/19/17 17:24 ALT 16 U/L (7-52) 05/19/17 17:24 Alkaline Phosphatase 52 U/L (34-104) 05/19/17 17:24 B-Natriuretic Peptide 711 pg/mL (-100) H 05/19/17 17:24 Total Protein 7.2 g/dL (6.4-8.9) 05/19/17 17:24 Albumin 3.5 g/dL (3.2-5.2) 05/19/17 17:24 Globulin 3.7 g/dL (2-4) 05/19/17 17:24 Albumin/Globulin Ratio 0.9 (1-3) L 05/19/17 17:24 05/19/17 05/19/17 19:41 21:40 Troponin I 0.00 0.00 Diagnostic Imaging: CXR 05/19/17: Pulmonary edema, improved. ECHO 05/19/17: EF 45-50%, severe MR, eccentric, severe TR, PApr 55 mmHg. EKG Data: monitor: afib 100-120 Assessment/Plan 81 yo with chronic afib, severe MR and TR with recurrent intermittent decompensated CHF. Off ventilator and tired, but holding her own. I had a comprehensive discussion with the patient and her son regarding options of high risk intervention (mitral clip) or MVR vs. Hospice. The patient had fully planned on intervention prior to decompensation, but was hoping to get a little time at home first. Plan: transfer for poss. Mitral clip to [facility], Dr. Nii Chris ( will send [facility] evaluation and records to them in addition to [facility] Dr. Chris was informed the patient's outpatient woolen suiting shrinker is Dr Vishal Amezquita. Regarding medical management: afib: -Continue anticoagulation for CVA prevention. -beta paulo for rate control. MR: -Beta paulo and prn diuretics. Asthma: -per ICU, hospitalists. The patient is high risk, EF is likely lower than estimated on echo, but unable to medically manage/stabilize at this time and Dr. Chris's assistance appreciated.
[2017-05-21] MEDS ORDERED: LORazepam INJ* 2 MG/ML 1 ML VIAL IV PUSH ONE (16:00)
[2017-05-21 16:28] VITALS: BP 118/82
--- NOTE | 2017-05-21 16:34 | PN ---
Progress Note - Progress Note Date of Service: 05/21/17 Note: Patient was weaned and extubated this AM without incident. Cardiology (Dr. Pratt) met with patient and her son, and the decision was reached to transfer the patient to [facility] for a mitral valve repair ( noninvasive) by Dr. Nii Chris. Patient was medically stable and cleared for transfer. Prior to transfer: BP 118/72, SF=941, RR = 22, SpO2 = 97% on nasal O2 at 2 L/min. Pertinent Labs on day of transfer:Md=955, K=3.9, LE=586, HCO3=27 , BUN=26, Creat=1.24, Yvcr=845, WBC=10.1, INR=2.15.
[2017-05-21] MEDS ORDERED: Warfarin TAB(*) 3 MG PO SCH (17:00)
--- NOTE | 2017-05-22 12:22 | DS ---
DISCHARGE SUMMARY: DATE OF ADMISSION: 05/19/17 DATE OF DISCHARGE: 05/21/17 HOSPITAL COURSE: The patient is a 81-year-old black female with a history of mitral insufficiency an d recurrent pulmonary edema, who was admitted on 05/19/17 for acute pulmonary edema, requiring intuba tion and mechanical ventilation. Cardiac ultrasound revealed severe mitral insufficiency, aortic insu fficiency, and tricuspid insufficiency. The patient also has a history of atrial fibrillation and ceballos d a rapid ventricular response when admitted. Hospital course was marked by the patient by respirato ry improvement and the patient was weaned and extubated from the ventilator on 05/21/17. Cardiology service was consulted and after discussion with the patient and her son, the decision was made to tra nsfer the patient to [facility] for a noninvasive mitral valve repair by Dr. Nii Chris. Jus t prior to the transfer, the patient was deemed to be clinically stable and ready for transfer. FINAL DIAGNOSES: 1. Severe mitral insufficiency with recurrent pulmonary edema. 2. Chronic atrial fibrillation. MEDICATIONS ON TRANSFER: 1. Coumadin 5 mg Friday, Friday, and Friday alternating with 7.5 mg in Friday, , and Fri. 2. Metoprolol 12.5 mg p.o. twice daily. 3. Diltiazem 180 mg p.o. daily. 4. Digoxin 0.125 mg p.o. daily. 5. Albuterol/ipratropium nebs q.6 hours p.r.n. wheezing or shortness of breath. [id number]/[facility] #: [id number]
== END 2017-05-21 17:03 | disposition short-term general hospital (02) | DRG 208 ==
LOC: ED 16:15 → ICU 17:49
PROVIDERS: ADMIT Internal Medicine Critical Care Medicine; ATTEND Internal Medicine Critical Care Medicine
PROC: 0BH17EZ Insertion of Endotracheal Airway into Trachea, Via Natural or Artificial Opening (ICD-10-PCS; principal; 2017-05-19)
PROC: 5A1945Z Respiratory Ventilation, 24-96 Consecutive Hours (ICD-10-PCS; 2017-05-19)
DX: J96.00 Acute respiratory failure, unspecified whether with hypoxia or hypercapnia (principal); J81.1 Chronic pulmonary edema; I48.2 Chronic atrial fibrillation; I11.0 Hypertensive heart disease with heart failure; I50.9 Heart failure, unspecified; I08.3 Combined rheumatic disorders of mitral, aortic and tricuspid valves; I25.10 Atherosclerotic heart disease of native coronary artery without angina pectoris; J45.909 Unspecified asthma, uncomplicated; I45.10 Unspecified right bundle-branch block; Z79.01 Long term (current) use of anticoagulants; Z79.899 Other long term (current) drug therapy
CPT/HCPCS: 36415; 36600; 71045; 80048; 80053; 80162; 82803; 83605; 83880; 84484; 85025; 85610; 85730; 87040; 87070; 87077; 87205; 87641; 93005; 93306; 94002; 94003; 94640; 94660; 94760; 99285; A9270-GY; J0330; J1940; J2060; J2250; J2704; J2920; J2930; J3475; J3480

== ENCOUNTER 2017-08-05 03:55 | Inpatient (IN) | payer MEDICARE ==
[2017-08-05] MEDS ORDERED: Furosemide IV* 10 MG/ML VIAL (40 MG) IV ONE (05:28)
[2017-08-05 05:29] LABS: ABS Basophils 0.3 10^3/ul (0-0.2); ABS Eosinophils 0.2 10^3/ul (0-0.6); ABS Lymphocytes 1.1 10^3/ul (1.0-4.8); ABS Monocytes 1.3 10^3/ul (0-0.8); ABS Neutrophils 5.2 10^3/ul (1.5-7.7); ABS Nucleated RBC 0 10^3/ul; Eosinophil % 2.7 % (0-6); Hematocrit 30 % (35-47); Hemoglobin 9.7 g/dl (12.0-16.0); Lymphocyte % 13.3 % (25-47); Mean Corpuscular HGB Conc 32 g/dl (31-36); Mean Corpuscular Hemoglobin 28 pg (27-31); Mean Corpuscular Volume 88 fL (80-97); Mean Platelet Volume 9.4 um3 (7.4-10.4); Nucleated Red Blood Cells % 0.4; Platelet Count 159 10^3/ul (150-450); Red Blood Count 3.43 10^6/ul (4.0-5.4); Red Cell Distribution Width 16 % (10.5-15); White Blood Count 8.1 10^3/ul (3.5-10.8)
[2017-08-05] MEDS ORDERED: Azithromycin IV(*) 500 MG in NS 0.9% 250 ML* 250 ML IVPB ONE (05:55)
[2017-08-05] MEDS ORDERED: cefTRIAXone(*) 1 GM in NS 0.9% 50 ML* 50 ML IVPB ONE (05:55)
--- NOTE | 2017-08-05 06:18 | ED ---
Nino Pinon Stephanie, scribed for Sony Smith MD on 08/05/17 at 0430 . Shortness of Breath - HPI Summary HPI Summary: The pt is a 81 y/o F BIBA to the ED with c/o SOB that began a few days ago. Symptoms include thigh edema which began 1 week ago. The pt states she has had a dry cough for the past few weeks and her SOB has worsened over the last few days. She denies abd pain, fever and chills. The pt has tried to follow a low- sodium diet as recommended by her PCP. - History of Current Complaint Chief Complaint: EDRespiratoryDistress Time Seen by Provider: 08/05/17 04:09 Hx Obtained From: Patient Onset/Duration: Gradual Onset, Lasting Days, Still Present Timing: Constant Current Severity: Moderate Dyspnea At: Rest Aggrevating Factors: Nothing Alleviating Factors: Nothing Associated Signs & Symptoms: Cough (Nonproductive), Edema - thigh - Allergy/Home Medications Allergies/Adverse Reactions: Allergies Allergy/AdvReac Type Severity Reaction Status Date / Time No Known Allergies Allergy Verified 04/07/17 13:26 PMH/Surg Hx/FS Hx/Imm Hx Endocrine/Hematology History: Denies: Hx Diabetes Cardiovascular History: Reports: Hx Atrial Fibrillation, Hx Congestive Heart Failure, Hx Coronary Artery Disease, Hx Hypertension Respiratory History: Reports: Hx Asthma, Other Respiratory Problems/Disorders - PULMONARY EDEMA History: Denies: Hx Renal Disease Musculoskeletal History: Reports: Hx Back Problems - Intermittent pain from fall in Sensory History: Reports: Hx Contacts or Glasses Denies: Hx Hearing Aid Opthamlomology History: Reports: Hx Contacts or Glasses - Surgical History Surgery Procedure, Year, and Place: Left ear surgery (1969) Infectious Disease History: No Infectious Disease History: Denies: Traveled Outside the [place] in Last 30 Days - Family History Known Family History: Positive: Cardiac Disease - Social History Occupation: Retired Lives: Alone Alcohol Use: None Hx Substance Use: No Substance Use Type: Reports: None Hx Tobacco Use: Yes Smoking Status (MU): Former Smoker Review of Systems Negative: Fever, Chills Positive: Shortness Of Breath, Cough Negative: Abdominal Pain Positive: Edema - bilateral thigh All Other Systems Reviewed And Are Negative: Yes Physical Exam - Summary Physical Exam Summary: Appearance: Well-appearing, Well-nourished, lying in bed comfortably Skin: Warm, dry, no obvious rash Eyes: sclera anicteric, no conjunctiva pallor ENT: mucous membranes moist, pharynx appears normal Neck: Supple, nontender, JVD Respiratory: Clear to auscultation, moderate respiratory distress, good aeration in lungs, bronchiole breath sounds in L Cardiovascular: Normal S1, S2. No murmurs. Normal distal pulses in tibial and radial bilaterally. Abdomen: Soft, nontender, normal active bowel sounds present Musculoskeletal:Strength/ROM Intact, peripheral edema in legs and lower back Neurological: A&Ox3, awake and alert, mentation is normal, speech is fluent and appropriate Psychiatric: affect is normal, does not appear anxious or depressed Triage Information Reviewed: Yes Vital Signs On Initial Exam: Initial Vitals Temp Pulse Resp BP Pulse Ox 98.6 F 68 28 116/74 97 08/05/17 04:05 08/05/17 04:05 08/05/17 04:05 08/05/17 04:05 08/05/17 04:05 Vital Signs Reviewed: Yes Diagnostics - Vital Signs Vital Signs Temp Pulse Resp BP Pulse Ox 08/05/17 04:05 98.6 F 68 28 116/74 97 - Laboratory Lab Results: Lab Results 08/05/17 08/05/17 08/05/17 Range/Units 05:11 05:11 05:11 WBC 8.1 (3.5-10.8) 10^3/ul RBC 3.43 L (4.0-5.4) 10^6/ul Hgb 9.7 L (12.0-16.0) g/dl Hct 30 L (35-47) % MCV 88 (80-97) fL MCH 28 (27-31) pg MCHC 32 (31-36) g/dl RDW 16 H (10.5-15) % Plt Count 159 (150-450) 10^3/ul MPV 9.4 (7.4-10.4) um3 Neut % (Auto) 65.1 (38-83) % Lymph % (Auto) 13.3 L (25-47) % [place] % (Auto) 15.8 H (0-7) % Eos % (Auto) 2.7 (0-6) % Baso % (Auto) 3.1 H (0-2) % Absolute Neuts (auto) 5.2 (1.5-7.7) 10^3/ul Absolute Lymphs (auto) 1.1 (1.0-4.8) 10^3/ul Absolute Monos (auto) 1.3 H (0-0.8) 10^3/ul Absolute Eos (auto) 0.2 (0-0.6) 10^3/ul Absolute Basos (auto) 0.3 H (0-0.2) 10^3/ul Absolute Nucleated RBC 0 10^3/ul Nucleated RBC % 0.4 Sodium 138 L (139-145) mmol/L Potassium 4.3 (3.5-5.0) mmol/L Chloride 101 (101-111) mmol/L Carbon Dioxide 31 (22-32) mmol/L Anion Gap 6 (2-11) mmol/L BUN 20 (6-24) mg/dL Creatinine 1.56 H (0.51-0.95) mg/dL Est GFR ( Amer) 41.2 (>60) Est GFR (Non-Af Amer) 32.0 (>60) BUN/Creatinine Ratio 12.8 (8-20) Glucose 107 H (70-100) mg/dL Calcium 9.0 (8.6-10.3) mg/dL Total Bilirubin 0.90 (0.2-1.0) mg/dL AST 22 (13-39) U/L ALT 13 (7-52) U/L Alkaline Phosphatase 78 (34-104) U/L Troponin I 0.01 (<0.04) ng/mL B-Natriuretic Peptide 940 H ( - 100) pg/mL Total Protein 7.0 (6.4-8.9) g/dL Albumin 3.3 (3.2-5.2) g/dL Globulin 3.7 (2-4) g/dL Albumin/Globulin Ratio 0.9 L (1-3) Result Diagrams: 08/05/17 05:11 08/05/17 05:11 Lab Statement: Any lab studies that have been ordered have been reviewed, and results considered in the medical decision making process. - Radiology CXR Xray Interpretation: No Acute Changes Radiology Interpretation Completed By: ED Physician - cardiomegaly, bilateral effusions L worst than R, minimal vascular congestion. - EKG 05:07 Cardiac Rate: NL EKG Interpretation: 62 BPM, RBBB, atrial fib similar to 05/19/17. Course/Dx - Course Course Of Treatment: Ar 05:50, Mitchel Anthony accepted the pt for admission into the hospital. - Diagnoses Provider Diagnoses: CHF (congestive heart failure), Pneumonia - Physician Notifications Discussed Care of Patient With: Mitchel Anthony Time Discussed With Above Provider: 05:50 Instructed by Provider To: Admit As Inpatient Discharge - Sign-Out/Discharge Documenting (check all that apply): Discharge/Admit/Transfer - Discharge Plan Condition: Good Disposition: ADMITTED TO [facility] Referrals: Vicky Ace MD [Primary Care Provider] - - Billing Disposition and Condition Condition: GOOD Disposition: [facility] [place] The documentation as recorded by the Nino sweet Stephanie accurately reflects the service I personally performed and the decisions made by me, Sony Smith MD.
[2017-08-05 06:21] LABS: INR 1.78 (0.77-1.02)
[2017-08-05] MEDS ORDERED: Albuterol HFA INHALER* 8 gm MDI INH PRN (06:27)
--- NOTE | 2017-08-05 07:58 | RAD ---
INDICATION: Dyspnea COMPARISON: Similar chest x-ray May 19, 2017 TECHNIQUE: Single AP portable view of the chest was obtained. FINDINGS: Image quality is compromised due to the relative inferiority of a portable chest x-ray. Similar to the prior chest x-ray there is cardiomegaly. The pulmonary vasculature is mildly engorged and indistinct. There is patchy densities obscuring the bilateral lungs. There is a more confluent density obscuring the left lung base as well as the left diaphragm and costophrenic angle. Visualized bones are normal for the patient's age. IMPRESSION: Depending on the patient's clinical presentation the chest x-ray findings could be compatible with cardiogenic pulmonary edema with a large pleural effusion obscuring the left lung base. Alternatively there could be a left lower lobe consolidation (i.e. pneumonia) causing the patient's acute dyspnea.
[2017-08-05] MEDS: Mometasone/Formoter 200/5 MDI INH SCH ×2 (08:26→19:58)
--- NOTE | 2017-08-05 08:29 | HP ---
CC: Dr. Ace; Dr. Morrow* HISTORY AND PHYSICAL: DATE OF ADMISSION: 08/05/17 PRIMARY CARE PROVIDER: Dr. Ace. COPY AND PRINT ASSOCIATE: Dr. Morrow. CHIEF COMPLAINT: Shortness of breath. HISTORY OF PRESENT ILLNESS: Ms. Pierce is a 81-year-old female who has a history of diastolic congestive heart failure, coronary artery disease, atrial fibrillation, hypertension, and history of severe mitral regurgitation, status post mitral valve repair in March 2017, who presents to the emergency room with complaints of shortness of breath. The patient states that over the last few weeks she has had progressive shortness of breath. She states that it got to the point where on the morning of admission she was still short of breath, she felt as if she could not breathe at all and, therefore, presented to the emergency room. The patient has received oxygen in the emergency room and with this she felt quite a bit better. The patient states, in addition to the shortness of breath, she has been coughing very vigorously over the last few weeks. She is bringing up minimal amount of mucus. She denies any fevers or chills, but states that she does not have a thermometer at home. The patient does state that she cannot lie flat, however, has been unable to do so over the last 3 years. She always sleeps with 3 pillows and this is unchanged recently. She has noted that she has had increased swelling of her legs, which is quite a bit more than usual. She states that her thighs typically are never this swollen. She admits to eating some processed foods, but no more than what she normally eats. PAST MEDICAL HISTORY: 1. Coronary artery disease. 2. Asthma. 3. Atrial fibrillation, on Eliquis. 4. Hypertension. 5. Severe mitral regurgitation, status post mitral valve repair. 6. Diastolic CHF. PAST SURGICAL HISTORY: 1. Mitral valve repair. 2. Tubal ligation. 3. Left ear surgery. MEDICATIONS: 1. Diltiazem ER 90 mg p.o. q.12 hours. 2. Torsemide 20 mg p.o. daily. 3. Potassium chloride 20 mEq p.o. b.i.d. 4. Metoprolol tartrate 12.5 mg p.o. b.i.d. 5. Advair 250/50 mcg, 1 puff inhaled twice daily. 6. Digoxin 0.125 mg p.o. daily. 7. Vitamin D 1000 units p.o. daily. 8. Lipitor 10 mg p.o. daily. 9. Eliquis 5 mg p.o. b.i.d. 10. Albuterol 2 puffs inhaled q.4 hours p.r.n. shortness of breath. ALLERGIES: No known drug allergies. FAMILY HISTORY: Mom of an unknown heart condition. Dad of lung cancer. SOCIAL HISTORY: The patient is a former smoker, she quit in 1991. She has a 20 - pack-year history of smoking. She drinks alcohol on occasion. She is retired from the [employer]. She is not . She has four children. She indicates that her son, Leonel Lopez, phone number , is her healthcare proxy. REVIEW OF SYSTEMS: The patient denies fevers, chills, or anorexia. She admits to chest pain with coughing. She admits to edema, cough, and shortness of breath as above. She does admits to being constipated, but no hematochezia. The rest of an 11-system review of systems is negative. PHYSICAL EXAMINATION GENERAL: The patient is a well-developed elderly female, sitting up on the bed , appearing to be in no acute distress. VITAL SIGNS: Blood pressure 111/65, pulse 69, respirations 34, temperature 98.6 , O2 sat 98% on 2 L. HEENT: Pupils are almost pinpoint. Extraocular muscles are intact. Oropharynx is clear. Oral mucosa is moist. NECK: There is no cervical or subclavicular adenopathy. There is a slight bulge in the left supraclavicular region and there are engorged vessels noted in the neck and upper chest. PULMONARY: There are bibasilar crackles, with the left being worse than the right. CARDIAC: Normal S1 and S2 with an irregularly irregular rhythm, and a controlled rate. There is marked, 2 to 3+ bilateral lower extremity edema all the way up to the hips. ABDOMEN: Bowel sounds are present. Abdomen is soft, nontender, and nondistended. MUSCULOSKELETAL: There is no cyanosis or clubbing of the digits. There is full active range of motion of all 4 extremities. SKIN: Warm and dry. There are no rashes. NEUROLOGIC: Cranial nerves II through XII are grossly intact. Sensation is intact to light touch throughout. Strength is 5/5 and symmetric in both upper and lower extremities bilaterally. PSYCH: The patient is alert. She is oriented to x3. Affect appears appropriate. LABORATORY DATA: WBC 8.1, hemoglobin 9.7, hematocrit 30, and platelets 159. Sodium 138, potassium 4.3, chloride 101, CO2 of 31, BUN 20, creatinine 1.56, glucose 107, calcium 9.0, bilirubin 0.9, AST 22, ALT 13, alkaline phosphatase 78. Troponin 0.01. BNP of 940. Albumin 3.3. INR pending. Digoxin level pending. EKG revealed atrial fibrillation with a controlled rate. Chest x-ray, to my interpretation, appears to show pulmonary vascular congestion with an enlarged cardiac silhouette. ASSESSMENT AND PLAN: Ms. Pierce is a 81-year-old female with a known history of diastolic congestive heart failure, atrial fibrillation, hypertension , and asthma, who is seen today in the emergency room for complaints of dyspnea , likely secondary to congestive heart failure exacerbation. 1. Dyspnea. My suspicion is that the patient is suffering from decompensated diastolic congestive heart failure. The patient does indicate that she has had increased swelling of her legs. She has some crackles on exam. While pneumonia is in the differential, this seems unlikely as she is not producing significant amounts of sputum nor has she been febrile. I will go ahead and order Lasix 40 mg daily. She just received her first dose of Lasix in the emergency room. We will monitor for response. The patient is typically on torsemide 20 mg a day. We will monitor her urine output as well as her symptoms of dyspnea and lower extremity swelling. Given she is now status post mitral valve repair in March of this year, I will go ahead and get a repeat echocardiogram to ensure her mitral regurgitation is less severe than it was. Asthma is on the differential, but seems again less likely as she is not having any significant wheezing. 2. Atrial fibrillation. The patient is in controlled atrial fibrillation. She will continue on her metoprolol, digoxin, and diltiazem. The digoxin level is pending. In addition I will continue her Eliquis 5 mg twice daily. Her renal function will need to be monitored closely as her creatinine is up slightly from her baseline. If her creatinine worsens further, she may need a reduction in the Eliquis dosing. 3. Anemia. The patient is chronically anemic. However, she is currently more anemic than she has been since March,. I will add iron and B12 studies to labs drawn in the emergency room. Additionally, I will send off stool occult blood. 4. Hypertension. The patient's BP is under very good control. We will continue her home medication regimen and monitor her blood pressure. 5. Asthma. We will continue Advair and p.r.n. albuterol. 6. DVT prophylaxis. According to the Adult Thrombosis Prophylaxis Risk Factor Assessment Guide, the patient has a total risk factor score of 5, making her the highest risk. She is already on Eliquis and this will act as a DVT prophylaxis. 7. Code status is full. TIME SPENT: Sixty-five minutes were spent admitting this patient. [id number]/CPS #: [id number] BASIL
[2017-08-05] MEDS: Cholecalciferol TAB* 1000 UNITS PO SCH (10:54)
[2017-08-05] MEDS: Atorvastatin* 10 MG TAB PO SCH (10:54)
[2017-08-05] MEDS: Apixaban* 5 MG TAB PO SCH ×2 (10:55→20:59)
[2017-08-05] MEDS: Potassium Chlor TAB* 20 MEQ TAB.ER PO SCH ×2 (10:55→20:57)
[2017-08-05] MEDS: Digoxin TAB* 0.125 MG PO SCH (10:55)
[2017-08-05] MEDS: Metoprolol Tartrate TAB* 25 MG PO SCH ×2 (10:55→20:59)
--- NOTE | 2017-08-05 12:48 | ECHO ---
Patient: MADDI ALEXANDRE [facility] Rec#: [id number] : 1935 Date: 08/05/2017 Age: 81y Height: 160 cm / 63.0 in Weight: 77.1 kg / 169.9 lbs Sex: F BSA: 1.8 Room#: 432 Admit Date#: 08/05/2017 Type: Inpatient Referring: Carolyn José DO Reading: Malcolm Mota MD Fine Patcher: Marcia Bonner RN RDCS CC: Vicky Ace MD Transthoracic Echocardiogram Indication: CHF BP: 113/86 HR: 57 Rhythm: A-Fib Findings History: CAD, A. fib, HTN, CHF, asthma, former smoker, mitral regurgitation. Technical Comments: The study quality is fair. The study is technically limited due to the patient's smoking history. Left Ventricle: The left ventricular chamber size is normal. Mild concentric left ventricular hypertrophy is observed. There is global hypokinesis of the left ventricle with minor regional variation. There is mildly decreased left ventricular systolic function. The estimated ejection fraction is 45-50%. There is septal flattening of the interventricular septum consistent with right ventricular volume or pressure overload. Abnormal left ventricular diastolic function is observed. Left Atrium: The left atrium is severely dilated. Right Ventricle: The right ventricle is moderately dilated. The right ventricular global systolic function is mildly reduced. Right Atrium: The right atrial cavity size is severely dilated. Aortic Valve: The aortic valve is trileaflet. The aortic valve leaflets are mildly thickened. There is aortic annular calcification. There is mild aortic regurgitation. There is no evidence of aortic stenosis. Mitral Valve: The mitral valve leaflets are mildly thickened. Mild subvalvular thickening of the mitral valve is visualized. There is moderate to severe mitral regurgitation. The mitral regurgitant jet is posteriorly directed. The mitral regurgitant jet is laterally directed. There is borderline mitral stenosis. Tricuspid Valve: The tricuspid valve leaflets are normal. There is severe tricuspid regurgitation. There is evidence of mild to moderate pulmonary hypertension. There is no tricuspid stenosis. Pulmonic Valve: The pulmonic valve appears normal. There is mild pulmonic regurgitation. Pericardium: There is no significant pericardial effusion. Aorta: There is mild dilatation of the ascending aorta. The aortic arch is not well visualized. There is no dilation of the aortic root. Pulmonary Artery: The main pulmonary artery appears normal. Venous: The inferior vena cava is dilated. There is less than 50% respiratory change in the inferior vena cava dimension. Hepatic vein systolic flow is reversed. Summary: There are no significant changes when compared to the previous study done on 05/20/17 Conclusions Mild concentric left ventricular hypertrophy is observed. There is global hypokinesis of the left ventricle with minor regional variation. There is mildly decreased left ventricular systolic function. The estimated ejection fraction is 45-50%. There is septal flattening of the interventricular septum consistent with right ventricular volume or pressure overload. The left atrium is severely dilated. There is no evidence of aortic stenosis. There is mild aortic regurgitation. There is moderate to severe mitral regurgitation. The mitral regurgitant jet is laterally directed. There is severe tricuspid regurgitation. There is evidence of mild to moderate pulmonary hypertension. There is no significant pericardial effusion. There are no significant changes when compared to the previous study done on 05/20/17 Measurements Name Value Normal Range RVIDd (AP) 2D 4.6 cm (0.9 - 2.6) RVDdMajor (2D) 5.1 cm (2.2 - 4.4) RAd ISD 4CH 7.8 cm (3.4 - 4.9) RA (A4C)W 5.3 cm (2.9 - 4.6) IVSd (2D) 1.1 cm (0.6 - 1) LVPWd (2D) 1.1 cm (0.6 - 1) LVIDd (2D) 4.8 cm (3.6 - 5.4) LVIDs (2D) 3.6 cm - LV FS (2D) 25 % (25 - 45) Aortic Annulus 1.6 cm (1.4 - 2.6) Ao root diameter (2D) 2.9 cm (2.1 - 3.5) Ascending Ao 3.9 cm (2.1 - 3.4) LA dimension (AP) 2D 4.8 cm (2.3 - 3.8) LAd ISD 4CH 7.2 cm (2.9 - 5.3) LA ISD 4CH W 6.3 cm (2.5 - 4.5) Name Value Normal Range LA ESV SP 4CH (A/L) 195 ml - LA ESV SP 2CH (A/L) 90 ml - LA ESV BP (A/L) 144 ml - LA ESV BP (A/L) index 79.5 ml/m2 - LA ESV SP 4CH (MOD) 176 ml - LA ESV SP 2CH (MOD) 85.4 ml - Name Value Normal Range MV E-wave Vmax 1.3 m/sec - MV deceleration time 172 msec - LV septal e' Vmax 0.06 m/sec - LV E:e' septal ratio 21.7 ratio - Name Value Normal Range AV Vmax 1.4 m/sec - AV VTI 27.6 cm - AV peak gradient 8.2 mmHg - AV mean gradient 4.3 mmHg - LVOT Vmax 0.84 m/sec - LVOT VTI 15.4 cm - LVOT peak gradient 2.8 mmHg - LVOT mean gradient 1.5 mmHg - Name Value Normal Range MV Vmax 1.4 m/sec - MV VTI 28.7 cm - MV peak gradient 8.1 mmHg - MV mean gradient 2.6 mmHg - MV PHT 76 msec - MR Vmax 4.19 m/sec - MR VTI 123 cm - MR volume (PISA) 34.4 ml - MR flow (PISA) 116.9 ml/sec - MR ERO 0.28 cm2 - MR PISA radius 0.7 cm - MR alias Vmax 0.38 cm/sec - MVA (PHT) 2.9 cm2 - Name Value Normal Range TR Vmax 2.7 m/sec - TR peak gradient 29 mmHg - RAP 15 mmHg - RVSP 44 mmHg - IVC diameter 2.8 cm - Name Value Normal Range PV Vmax 0.88 m/sec -
[2017-08-05] MEDS: Diltiazem CD CAP* 120 MG PO SCH (13:31)
--- NOTE | 2017-08-05 15:17 | PN ---
Subjective Date of Service: 08/05/17 Interval History: Patient states that her breathing has improved since admission. Denies any chest pain or shortness of breath, Denies abd pain n/v/d. C/o bilat leg swelling. Family History: Unchanged from Admission Social History: Unchanged from Admission Past Medical History: Unchanged from Admission Objective Active Medications: Albuterol (Ventolin Hfa Inhaler*) 2 puff INH Q4H PRN PRN Reason: SHORTNESS OF BREATH Apixaban (Eliquis*) 5 mg PO BID [facility] Last Admin: 08/05/17 10:55 Dose: 5 mg Atorvastatin Calcium (Lipitor*) 10 mg PO DAILY [facility] Last Admin: 08/05/17 10:54 Dose: 10 mg Cholecalciferol (Vitamin D Tab*) 1,000 units PO DAILY [facility] Last Admin: 08/05/17 10:54 Dose: 1,000 units Digoxin (Lanoxin Tab*) 0.125 mg PO QAM [facility] Last Admin: 08/05/17 10:55 Dose: 0.125 mg Diltiazem HCl (Cardizem Cd Cap*) 120 mg PO DAILY [facility] Last Admin: 08/05/17 13:31 Dose: 120 mg Furosemide (Lasix Iv*) 40 mg IV DAILY [facility] Metoprolol Tartrate (Lopressor Tab*) 12.5 mg PO BID [facility] Last Admin: 08/05/17 10:55 Dose: 12.5 mg Mometasone Furoate/Formoterol Fumar (Dulera 200/5 Mdi*) 2 puff INH BID [facility] Last Admin: 08/05/17 08:26 Dose: 2 puff Potassium Chloride (Klor Con Er Tab*) 20 meq PO BID [facility] Last Admin: 08/05/17 10:55 Dose: 20 meq Vital Signs - 8 hr 08/05/17 08/05/17 08/05/17 07:15 07:38 08:27 Temperature 97.8 F Pulse Rate 62 Respiratory 27 22 18 Rate Blood Pressure 117/73 112/70 (mmHg) O2 Sat by Pulse 98 Oximetry 08/05/17 08/05/17 10:55 11:14 Temperature 97.7 F Pulse Rate 65 62 Respiratory 24 Rate Blood Pressure 108/66 (mmHg) O2 Sat by Pulse 100 Oximetry Oxygen Devices in Use Now: Nasal Cannula Appearance: appears comfortable , No acute distress Eyes: No Scleral Icterus Ears/Nose/Mouth/Throat: NL Teeth, Lips, Gums, Clear Oropharnyx Neck: NL Appearance and Movements; NL JVP, Trachea Midline Respiratory: Symmetrical Chest Expansion and Respiratory Effort, - - few scattered exp wheezes t/o bilat Cardiovascular: - - murmur, irregular rate, edema to bilat lower leg from the thighs down +2 pitting Abdominal: NL Sounds; No Tenderness; No Distention Extremities: No Edema, No Clubbing, Cyanosis Skin: No Rash or Ulcers Neurological: Alert and Oriented x 3, NL Muscle Strength and Tone Nutrition: Taking PO's Result Diagrams: 08/05/17 05:11 08/05/17 05:11 Additional Lab and Data: Lab Results 08/05/17 08/05/17 08/05/17 Range/Units 05:11 05:11 05:11 WBC 8.1 (3.5-10.8) 10^3/ul RBC 3.43 L (4.0-5.4) 10^6/ul Hgb 9.7 L (12.0-16.0) g/dl Hct 30 L (35-47) % MCV 88 (80-97) fL MCH 28 (27-31) pg MCHC 32 (31-36) g/dl RDW 16 H (10.5-15) % Plt Count 159 (150-450) 10^3/ul MPV 9.4 (7.4-10.4) um3 Neut % (Auto) 65.1 (38-83) % Lymph % (Auto) 13.3 L (25-47) % Bibb % (Auto) 15.8 H (0-7) % Eos % (Auto) 2.7 (0-6) % Baso % (Auto) 3.1 H (0-2) % Absolute Neuts (auto) 5.2 (1.5-7.7) 10^3/ul Absolute Lymphs (auto) 1.1 (1.0-4.8) 10^3/ul Absolute Monos (auto) 1.3 H (0-0.8) 10^3/ul Absolute Eos (auto) 0.2 (0-0.6) 10^3/ul Absolute Basos (auto) 0.3 H (0-0.2) 10^3/ul Absolute Nucleated RBC 0 10^3/ul Nucleated RBC % 0.4 Sodium 138 L (139-145) mmol/L Potassium 4.3 (3.5-5.0) mmol/L Chloride 101 (101-111) mmol/L Carbon Dioxide 31 (22-32) mmol/L Anion Gap 6 (2-11) mmol/L BUN 20 (6-24) mg/dL Creatinine 1.56 H (0.51-0.95) mg/dL Est GFR ( Amer) 41.2 (>60) Est GFR (Non-Af Amer) 32.0 (>60) BUN/Creatinine Ratio 12.8 (8-20) Glucose 107 H (70-100) mg/dL Calcium 9.0 (8.6-10.3) mg/dL Total Bilirubin 0.90 (0.2-1.0) mg/dL AST 22 (13-39) U/L ALT 13 (7-52) U/L Alkaline Phosphatase 78 (34-104) U/L Troponin I 0.01 (<0.04) ng/mL B-Natriuretic Peptide 940 H ( - 100) pg/mL Total Protein 7.0 (6.4-8.9) g/dL Albumin 3.3 (3.2-5.2) g/dL Globulin 3.7 (2-4) g/dL Albumin/Globulin Ratio 0.9 L (1-3) Assess/Plan/Problems-Billing Assessment: Ms. Pierce is a 81 y.o female with a history of afib, MV repair, CHF , anemia HTN, asthma who presented to the emergency room with increased shortness of breath. BNP was elevated most likely related to CHF - Patient Problems (1) Acute on chronic diastolic CHF (congestive heart failure) Current Visit: Yes Status: Acute Code(s): I50.33 - ACUTE ON CHRONIC DIASTOLIC (CONGESTIVE) HEART FAILURE SNOMED Code(s): 264357597 Comment: Will continue Lasix 40 mg IV daily Will monitor I/O Daily Weights (2) Atrial fibrillation Current Visit: No Status: Acute Code(s): I48.91 - UNSPECIFIED ATRIAL FIBRILLATION SNOMED Code(s): 30795441 Comment: chronic, cont digoxin, cardizem rate controlled. continue eliquis (3) HTN (hypertension) Current Visit: Yes Status: Acute Code(s): I10 - ESSENTIAL (PRIMARY) HYPERTENSION SNOMED Code(s): 43544980 Comment: controlled continue cardizem, metoprolol (4) Anemia Current Visit: Yes Status: Acute Code(s): D64.9 - ANEMIA, UNSPECIFIED SNOMED Code(s): 515427281 Comment: Chronic - stable will continue to monitor for signs of bleeding (5) Asthma Current Visit: Yes Status: Acute Code(s): J45.909 - UNSPECIFIED ASTHMA, UNCOMPLICATED SNOMED Code(s): 315518382 Comment: continue dulera and albuterol as needed (6) DVT prophylaxis Current Visit: No Status: Acute Code(s): RDH4962 - SNOMED Code(s): 342250051 Comment: jose (7) Full code status Current Visit: Yes Status: Acute Code(s): Z78.9 - OTHER SPECIFIED HEALTH STATUS SNOMED Code(s): 207212630 Status and Disposition: obv
[2017-08-05] MEDS ORDERED: Benzonatate CAP* 100 MG PO PRN (20:17)
[2017-08-06 05:36] LABS: Hematocrit 31 % (35-47); Hemoglobin 9.7 g/dl (12.0-16.0); Mean Corpuscular HGB Conc 31 g/dl (31-36); Mean Corpuscular Hemoglobin 28 pg (27-31); Mean Corpuscular Volume 88 fL (80-97); Mean Platelet Volume 9.4 um3 (7.4-10.4); Platelet Count 161 10^3/ul (150-450); Red Blood Count 3.48 10^6/ul (4.0-5.4); Red Cell Distribution Width 16 % (10.5-15); White Blood Count 7.8 10^3/ul (3.5-10.8)
[2017-08-06 05:54] LABS: EGFR Non-African American 36.9 (>60)
[2017-08-06] MEDS: Mometasone/Formoter 200/5 MDI INH SCH ×2 (07:37→20:53)
[2017-08-06] MEDS: Digoxin TAB* 0.125 MG PO SCH (07:56)
[2017-08-06] MEDS: Apixaban* 5 MG TAB PO SCH ×2 (07:57→21:02)
[2017-08-06] MEDS: Potassium Chloride LIQUID* 20 MEQ PACKET PO SCH ×2 (07:57→21:02)
[2017-08-06] MEDS: Atorvastatin* 10 MG TAB PO SCH (07:57)
[2017-08-06] MEDS: Diltiazem CD CAP* 120 MG PO SCH (07:57)
[2017-08-06] MEDS: Cholecalciferol TAB* 1000 UNITS PO SCH (07:57)
[2017-08-06] MEDS: Metoprolol Tartrate TAB* 25 MG PO SCH ×2 (07:57→21:03)
[2017-08-06] MEDS ORDERED: Furosemide IV* 10 MG/ML VIAL (40 MG) IV SCH (09:00)
--- NOTE | 2017-08-06 13:55 | PN ---
Subjective Date of Service: 08/06/17 Interval History: Pt feels "OK" on oxygen. Stated that her baseline weight is 155 bs and she has no idea when she started gaining weight. Her mitral valve surgery was at the end of April or beginning of May 2017. Post op had VNS and used 02, then both of those services were discontinued. Family History: Unchanged from Admission Social History: Unchanged from Admission Past Medical History: Unchanged from Admission Objective Active Medications: Albuterol (Ventolin Hfa Inhaler*) 2 puff INH Q4H PRN PRN Reason: SHORTNESS OF BREATH Last Admin: 08/05/17 19:43 Dose: 2 puff Apixaban (Eliquis*) 5 mg PO BID [facility] Last Admin: 08/06/17 07:57 Dose: 5 mg Atorvastatin Calcium (Lipitor*) 10 mg PO DAILY [facility] Last Admin: 08/06/17 07:57 Dose: 10 mg Benzonatate (Tessalon Cap*) 100 mg PO BID PRN PRN Reason: COUGH Last Admin: 08/05/17 20:59 Dose: 100 mg Cholecalciferol (Vitamin D Tab*) 1,000 units PO DAILY [facility] Last Admin: 08/06/17 07:57 Dose: 1,000 units Digoxin (Lanoxin Tab*) 0.125 mg PO QAM [facility] Last Admin: 08/06/17 07:56 Dose: 0.125 mg Diltiazem HCl (Cardizem Cd Cap*) 120 mg PO DAILY [facility] Last Admin: 08/06/17 07:57 Dose: 120 mg Furosemide (Lasix Iv*) 60 mg IV 0800,1700 [facility] Metoprolol Tartrate (Lopressor Tab*) 12.5 mg PO BID [facility] Last Admin: 08/06/17 07:57 Dose: 12.5 mg Mometasone Furoate/Formoterol Fumar (Dulera 200/5 Mdi*) 2 puff INH BID [facility] Last Admin: 08/06/17 07:37 Dose: 2 puff Potassium Chloride (Klor-Con Liquid*) 20 meq PO BID [facility] Last Admin: 08/06/17 07:57 Dose: 20 meq Vital Signs - 8 hr 08/06/17 08/06/17 07:22 11:14 Temperature 98.6 F 98.4 F Pulse Rate 54 55 Respiratory 20 20 Rate Blood Pressure 107/66 108/68 (mmHg) O2 Sat by Pulse 100 94 Oximetry Oxygen Devices in Use Now: Simple Face Mask Appearance: 81 yo F in nAD, aAOx3 Eyes: No Scleral Icterus, PERRLA Ears/Nose/Mouth/Throat: NL Teeth, Lips, Gums, Mucous Membranes Moist Neck: NL Appearance and Movements; NL JVP, Trachea Midline Respiratory: Symmetrical Chest Expansion and Respiratory Effort, Clear to Auscultation Cardiovascular: - - irregular Abdominal: NL Sounds; No Tenderness; No Distention, No Hepatosplenomegaly Lymphatic: No Cervical Adenopathy Extremities: No Clubbing, Cyanosis, - - +2 pitting pedall edema to level of thighs b/l Skin: No Rash or Ulcers, No Nodules or Sclerosis Neurological: Alert and Oriented x 3, NL Muscle Strength and Tone Result Diagrams: 08/06/17 05:16 08/06/17 05:16 Additional Lab and Data: Lab Results 08/05/17 08/05/17 08/05/17 Range/Units 05:11 05:11 05:11 WBC 8.1 (3.5-10.8) 10^3/ul RBC 3.43 L (4.0-5.4) 10^6/ul Hgb 9.7 L (12.0-16.0) g/dl Hct 30 L (35-47) % MCV 88 (80-97) fL MCH 28 (27-31) pg MCHC 32 (31-36) g/dl RDW 16 H (10.5-15) % Plt Count 159 (150-450) 10^3/ul MPV 9.4 (7.4-10.4) um3 Neut % (Auto) 65.1 (38-83) % Lymph % (Auto) 13.3 L (25-47) % Fajardo % (Auto) 15.8 H (0-7) % Eos % (Auto) 2.7 (0-6) % Baso % (Auto) 3.1 H (0-2) % Absolute Neuts (auto) 5.2 (1.5-7.7) 10^3/ul Absolute Lymphs (auto) 1.1 (1.0-4.8) 10^3/ul Absolute Monos (auto) 1.3 H (0-0.8) 10^3/ul Absolute Eos (auto) 0.2 (0-0.6) 10^3/ul Absolute Basos (auto) 0.3 H (0-0.2) 10^3/ul Absolute Nucleated RBC 0 10^3/ul Nucleated RBC % 0.4 Sodium 138 L (139-145) mmol/L Potassium 4.3 (3.5-5.0) mmol/L Chloride 101 (101-111) mmol/L Carbon Dioxide 31 (22-32) mmol/L Anion Gap 6 (2-11) mmol/L BUN 20 (6-24) mg/dL Creatinine 1.56 H (0.51-0.95) mg/dL Est GFR ( Amer) 41.2 (>60) Est GFR (Non-Af Amer) 32.0 (>60) BUN/Creatinine Ratio 12.8 (8-20) Glucose 107 H (70-100) mg/dL Calcium 9.0 (8.6-10.3) mg/dL Total Bilirubin 0.90 (0.2-1.0) mg/dL AST 22 (13-39) U/L ALT 13 (7-52) U/L Alkaline Phosphatase 78 (34-104) U/L Troponin I 0.01 (<0.04) ng/mL B-Natriuretic Peptide 940 H ( - 100) pg/mL Total Protein 7.0 (6.4-8.9) g/dL Albumin 3.3 (3.2-5.2) g/dL Globulin 3.7 (2-4) g/dL Albumin/Globulin Ratio 0.9 L (1-3) Microbiology and Other Data: Microbiology 08/05/17 14:49 Stool Occult Blood (GABRIELLA) - Final Stool Assess/Plan/Problems-Billing Assessment: Ms. Pierce is a 81 y.o female with a history of afib, MV repair, CHF , anemia HTN, asthma who presented to the emergency room with increased shortness of breath. BNP was elevated most likely related to CHF - Patient Problems (1) Acute on chronic diastolic CHF (congestive heart failure) Comment: will increase Lasix BID. Pt is still 20 lbs over her baseline weight Will monitor I/O Daily Weights Pt's mitral valve appar to have still significant regurgitation similar to previous Echo that was done before the mitral valve repair. Obtaining med records from Dr. Morrow's office. (2) Anemia Comment: Chronic - stable will continue to monitor for signs of bleeding (3) Asthma Comment: controled continue dulera and albuterol as needed (4) HTN (hypertension) Comment: controlled continue cardizem, metoprolol (5) Atrial fibrillation Comment: chronic, cont digoxin, cardizem rate controlled. continue eliquis (6) DVT prophylaxis Comment: eliquis Status and Disposition: obv will be changed to inpatient due to the need for further IV diuretic tx
[2017-08-06] MEDS: Furosemide IV* 10 MG/ML 10 ML VIAL (100 MG) IV SCH (17:06)
--- NOTE | 2017-08-07 05:30 | CONS ---
CC: Dr. Toni Maya; Dr. Morrow; Hospitalist service * CARDIOLOGY CONSULTATION: DATE OF CONSULT: 08/06/17 REASON FOR CONSULT: Congestive heart failure. HISTORY OF PRESENT ILLNESS: Mrs. Pierce is a 81-year-old woman who presented yesterday to [facility] with shortness of breath and leg swelling. The patient has a history of known valvular heart disease and cardiomyopathy and in early May 2017 the patient was admitted [facility], transferred to [facility] and then subsequently transferred to [facility] in [place] because of congestive heart failure and valvular heart disease including a severe mitral insufficiency. On 06/04/17 the patient underwent percutaneous implantation of a MitraClip by Dr. Nii Chris who documented that there was Doppler evidence of moderate insufficiency initially requiring the clip to be opened and repositioned more medially and at that time there was trace to mild insufficiency with a gradient across the mitral valve of 1 mmHg. The patient is a bit of a vague historian. She was present with her 3 sons, 2 of whom live in [place] and she describes waking up in the middle of the night feeling short of breath and the need to urinate. She denies any changes in her diet, although she admits that she will occasionally eat high-salt foods, but does not think there was any change. She was feeling well, was not requiring her oxygen. She sent her oxygen home and then all of a sudden seemed to need it. The patient also had significant edema, not just of the lower legs but of the thighs which she said she has never had before. The patient has seen Dr. Morrow once since the MitraClip was implanted and she denies any adjustments in medications, but says her medications were adjusted after discharge from [facility]. In reviewing Dr. Morrow's office note of 07/25/17, he had increased the patient's torsemide to 40 b.i.d. for increased lower extremity edema and volume overload. I could not verify with the patient and family if she had made this change. PAST MEDICAL HISTORY: The patient has a past medical history of: 1. Valvular heart disease: severe mitral insufficiency with MitraClip . Aortic insufficiency Trecuspid insufficiency. 2. Chronic atrial fibrillation. 3. Diastolic congestive heart failure. March admission with chest pain and found to be in severe mitral insufficiency with elevated troponin and community acquired pneumonia. 4. Asthma. 5. Negative for coronary artery disease (cath 04/11/17 showed normal coronary arteries, severe right heart dysfunction, elevated wedge pressure, and reduced cardiac index). 6. ARDS in April of 2017. PAST SURGICAL HISTORY: Includes a mitral valve clip May 2017, tubal ligation , and left ear surgery. MEDICATIONS: Current inpatient medications include: 1. Albuterol inhaler. 2. Eliquis 5 mg b.i.d. 3. Lipitor 10 mg a day. 4. Tessalon capsules 100 mg b.i.d. p.r.n. 5. Vitamin D tablets. 6. Digoxin 0.125 mg a day. 7. Cardizem CD 120 mg a day. 8. Lasix 60 mg IV b.i.d. 9. Lopressor 12.5 mg b.i.d. 10. Dulera 2 puffs b.i.d. 11. Potassium chloride 40 mEq a day. ALLERGIES: SPIRONOLACTONE intolerance due to hair loss. FAMILY HISTORY: Significant that her father of lung cancer and her mother has some sore of heart disease. SOCIAL HISTORY: The patient is a former smoker, stopped in 1991. She does get some passive exposure from her sons. Rare alcohol, none recently. She is retried from the [employer] in [facility]. She lives in [place]. Two sons live in [place] and one in [place] and there is a 4th child that I have not met. REVIEW OF SYSTEMS: Negative for recent fevers, chills, sweats, hematuria, and dysuria. No recent productive cough. She denies a change in appetite. As above she has PND nightly and nocturia and she does sleep on 3 pillows chronically. She denies chest pain, pressure, or heaviness. She has had no recent travel. PHYSICAL EXAM: The patient is a 5 feet 3 inches, weighs 177 pounds with a BMI of 31.4. Vital Signs: On arrival to the emergency room yesterday; blood pressure 116/74, pulse was 68, irregularly irregular, respiratory rate was 28, and oxygen saturation was 97% with 2 L nasal cannula. Vital Signs today show blood pressure of 108, pulse was 60, respiratory rate is 20, oxygen saturation 94% on room air, and temperature 98.4. General Appearance : Elderly woman, seated with oxygen on, appears comfortable talking with her sons, but does appear chronically ill. Psychologically, pleasant and cooperative. Neurologically, awake, alert, and oriented to person and place. I did not evaluate for time. Speech is articulate. Comprehension seems pretty good, but the answers are vague. Skin is warm and dry. The fingers shows some clubbing. No cyanosis of the lips or nail beds. HEENT: Pupils are equal and round. Mucous membranes are moist. Neck: With increased JVP noted in the sitting position on the right. Breath sounds had diffuse fine wheezing in the basis and diminished breath sounds. Some rales were heard. Coronary: S1 and S2. Irregular with a low-pitched systolic murmur heard at the apex. I did not appreciate a diastolic murmur. Lower extremities showed 3 + edema up to the knee and the thighs are thickened but without pitting edema. Abdomen: Active bowel sounds, soft, and nontender. Suboptimal exam is done in the chair. DIAGNOSTIC STUDIES/LAB DATA: Chest x-ray on admission 08/05/17 showed pulmonary vasculature was engorged with patchy infiltrates and left lower lobe density consistent with left diaphragm versus effusion versus consolidation. A 12-lead ECG from 08/05/17 at 0420 shows atrial fibrillation versus atrial flutter with a right bundle branch block. Ventricular rate of 62 beats a minute , QRS axis is 0. Deeply inverted T-waves across the precordial leads and flattened T-waves across the limb leads. When this was compared with her EKG of 05/19/17, the ventricular rate is slower and the ST depression in the precordial leads has resolved. Echocardiogram from 08/05/[address] Mota that I also reviewed personally showed global hypokinesis with an ejection fraction of 45% to 50%. Septal flattening suggestive of RV overload. Mild aortic insufficiency. Moderate to severe mitral insufficiency with a posterior lateral jet. Severe tricuspid insufficiency and PA pressure was elevated at 44 mmHg. Labs today show a white count of 7.8, hemoglobin 9.7, hematocrit 31 (in March of 2017 hematocrit as high as 37). INR 1.78. Sodium 138, potassium 4.5, chloride 103, bicarb 29, BUN 17, creatinine 1.38, glucose 108. On admission, AST 22, ALT 13. Troponin 0.01. BNP 940. Digoxin 0.7. In summary, Faith Pierce is a 81-year-old woman who had severe mitral insufficiency as well as AI and TR and congestive heart failure on admission in April of 2017 and she underwent MitraClip with good result based on the reports we have. The patient now presents with recurrent congestive heart failure and recurrence of significant mitral insufficiency as well as severe tricuspid insufficency. In reviewing the patient's echo today, the MitraClip is more easily seen in the posterior leaflet on most views. I do not appreciate on the short-axis view that it is actually dehisced or pulled off a leaflet which is what I first thought. But I think there must be some change in the MitraClip placement to have such significant insufficiency recur. Additionally, the patient has significant valvular heart disease of the mitral and tricuspid valves as well and a volume overload and dietary noncompliance and compliance in general may be a huge factor here. I agree with aggressive diuresis on board. Additional options for optimization could include addition of an LUZ inhibitor as she has not been intolerant to this and perhaps converting metoprolol to Coreg if this has not been tried. I personally talked to Dr. Chris and discussed the findings on her echo and the tentative plan is to transfer her to [facility] for further evaluation to see if any additional interventional management is needed. If there is any delay we could consider doing a transesophageal echo here, but I think we need to get her biventricular failure under better control at this time. Additional recommendations will be made pending her response to aggressive intravenous diuresis. The patient very much wants to go home and see her sons out while they are here , they came up for mother's day but there is concern that she is amenable to any recommendations Cardiology has to offer. Thank you for allowing me to assist in this nice woman's care. [id number]/[facility] #: [id number] BASIL
[2017-08-07 06:15] LABS: Hematocrit 30 % (35-47); Hemoglobin 9.7 g/dl (12.0-16.0); Mean Corpuscular HGB Conc 32 g/dl (31-36); Mean Corpuscular Hemoglobin 28 pg (27-31); Mean Corpuscular Volume 88 fL (80-97); Mean Platelet Volume 9.3 um3 (7.4-10.4); Platelet Count 156 10^3/ul (150-450); Red Blood Count 3.45 10^6/ul (4.0-5.4); Red Cell Distribution Width 16 % (10.5-15); White Blood Count 8.9 10^3/ul (3.5-10.8)
[2017-08-07 06:27] LABS: EGFR Non-African American 36.9 (>60)
[2017-08-07] MEDS: Mometasone/Formoter 200/5 MDI INH SCH (07:45)
[2017-08-07] MEDS: Potassium Chloride LIQUID* 20 MEQ PACKET PO SCH (08:18)
[2017-08-07] MEDS: Metoprolol Tartrate TAB* 25 MG PO SCH (08:18)
[2017-08-07] MEDS: Apixaban* 5 MG TAB PO SCH (08:19)
[2017-08-07] MEDS: Cholecalciferol TAB* 1000 UNITS PO SCH (08:20)
[2017-08-07] MEDS: Digoxin TAB* 0.125 MG PO SCH (08:20)
[2017-08-07] MEDS: Atorvastatin* 10 MG TAB PO SCH (08:22)
[2017-08-07] MEDS: Diltiazem CD CAP* 120 MG PO SCH (08:22)
[2017-08-07] MEDS: Furosemide IV* 10 MG/ML 10 ML VIAL (100 MG) IV SCH (08:24)
--- NOTE | 2017-08-07 11:13 | TRS ---
CC: Dr. Morrow; Dr. Ace; Dr. Pratt; Dr. Chris TRANSFER SUMMARY: DATE OF ADMISSION: 08/05/17 DATE OF TRANSFER: To [facility] under Dr. Chris's service, 08/07/17 PRIMARY CARE PROVIDER: Dr. Ace. REASON FOR TRANSFER: Mitral valve regurgitation, severe, with CHF. SECONDARY DIAGNOSES: 1. History of mitral valve clipping performed by Dr. Chris on 05/28/17. 2. History of chronic diastolic CHF. 3. History of coronary artery disease. 4. History of asthma. 5. History of atrial fibrillation, which is also chronic. 6. Hypertension. 7. History of tubal ligation. 8. History of left ear surgery. MEDICATIONS: At home prior to the patient's hospitalization included: 1. Diltiazem ER 90 mg every 12 hours. 2. Torsemide 20 mg daily. 3. Potassium chloride 20 mEq b.i.d. 4. Metoprolol tartrate 12.5 mg b.i.d. 5. Advair 250/50 one inhalation twice a day. 6. Digoxin 0.125 mg daily. 7. Vitamin D 1000 units daily. 8. Lipitor 10 mg daily. 9. Eliquis 5 mg b.i.d. 10. Albuterol inhaler on a p.r.n. basis. The patient's medications during the hospital stay, at discharge included: 1. Albuterol inhaler one puff every 4 hours p.r.n. 2. Eliquis 5 mg b.i.d. 3. Lipitor 10 mg daily. 4. Tessalon Perles 100 mg b.i.d. p.r.n. 5. Vitamin D3 1000 units daily. 6. Digoxin 125 mcg daily. 7. Diltiazem CD 120 mg daily. 8. Lasix IV 60 mg twice a day. 9. Metoprolol tartrate 12.5 mg b.i.d. 10. Dulera 200/5 two puff inhalation b.i.d. 11. Potassium chloride 20 mEq b.i.d. LABORATORY DATA AND STUDIES PERFORMED DURING THE HOSPITAL STAY: Included: On 08/07/17, white blood cell count of 8.9, hemoglobin of 9.7, hematocrit of 30, and platelets of 156 . Sodium was 139, potassium 4.3, chloride 106, carbon dioxide 30, BUN 20, creatinine 1.38. Brain natriuretic peptide on 08/05/17 was 940. Transthoracic echocardiogram obtained on 08/05/17 showed EF of 45% to 50% with global hypokinesia of the left ventricle with mild regional variation. There was septal flattening of the interventricular septum consistent with right ventricular volume or pressure overload. The left atrium was severely dilated. There was mild aortic regurgitation. There was dxtfwouq-ji-hyqzfh mitral regurgitation. T he mitral regurgitant jet was laterally directed. There was severe tricuspid regurgitation. There w as evidence of ssnl-ys-pvjaknry pulmonary hypertension. There was no significant pericardial effusion . There were no significant changes when compared to previous study from 05/20/17 prior to the patie nt's mitral valve clipping. Portable chest x-ray obtained on admission, impression: "Depending on the patient's clinical present ation, the chest x-ray findings could be compatible with pulmonary edema with large pleural ef fusion obscuring the left lung base. Alternatively it could be a left lower lobe consolidation causin g the patient acute dyspnea." HOSPITALIZATION COURSE: Faith Pierce is a 81-year-old female with history of mitral valve clippin g that was performed by Dr. Chris at [facility] on 05/28/17, who [facility] complaining of worsening dyspnea and weight gain. The patient stated that her usual weight is 155 pounds. The patient was 177 pounds on presentation. The patient continued to be diuresed with intra venous Lasix. Repeat echocardiogram showed that the patient's mitral valve appeared to have severe r egurgitation similar to the echocardiogram noted prior to mitral valve clipping. Dr. Pratt was con sulted on the patient from Cardiology and discussed the case with Dr. Chris. Dr. Chris accepted th e patient for transfer for further mitral valve clipping or repair and the evaluation for that is to be performed by Dr. Chris at [facility]. The patient accepted the transfer a nd she is going to be transferred via ambulance today. PHYSICAL EXAM AT THE TIME OF DISCHARGE: Blood pressure 107/64, heart rate of 67 and irregular, respi ratory rate 20, oxygen saturation 100% on 3 L of oxygen nasal cannula, temperature 97.5. General Tom earance: The patient is a very pleasant 81- year-old female who is not in acute distress. Alert, aw carolyn, and oriented x3, but a poor historian though. HEENT: Head atraumatic, normocephalic. Eyes: P upils are equal and reactive to light and accommodation. Oropharynx clear. Mucosa moist. Neck: Sup ple. Positive for JVP bilaterally. Cardiovascular: Irregularly irregular rhythm. No murmur detect ed. Respiratory: Crackles at the bilateral bases noted. Abdomen: Soft, nontender. Bowel sounds p resent in all 4 quadrants. Lower Extremities: There is +2 pitting pedal edema over the lateral feet, ankles, to the level of the patient's mid thighs. There is no clubbing or cyanosis. Pulses are +2 b ilaterally in bilateral lower extremities. Neuro Evaluation: Speech clear. Cranial nerves II throug h XII grossly intact. Motor strength is 5/5 bilaterally. Please note that this is a short summary of the patient's hospitalization. Please refer to further m edical records for details. TIME SPENT: Approximately 45 minutes was spent on the patient's transfer. [id number]/[facility] #: [id number]
[2017-08-07 11:26] VITALS: BP 103/68
== END 2017-08-07 15:09 | disposition short-term general hospital (02) | DRG 291 ==
LOC: ED 03:55 → MEDTELE 06:45 → OBSVTOIN 08-06 13:55
PROVIDERS: ADMIT Pediatrics; ATTEND Internal Medicine
DX: I13.0 Hypertensive heart and chronic kidney disease with heart failure and stage 1 through stage 4 chronic kidney disease, or unspecified chronic kidney disease (principal); I50.33 Acute on chronic diastolic (congestive) heart failure; I25.10 Atherosclerotic heart disease of native coronary artery without angina pectoris; J45.909 Unspecified asthma, uncomplicated; K59.00 Constipation, unspecified; D64.9 Anemia, unspecified; I45.10 Unspecified right bundle-branch block; N18.3 Chronic kidney disease, stage 3 (moderate); I48.2 Chronic atrial fibrillation; I42.9 Cardiomyopathy, unspecified; I08.3 Combined rheumatic disorders of mitral, aortic and tricuspid valves; I27.20 Pulmonary hypertension, unspecified; Z98.51 Tubal ligation status; Z82.49 Family history of ischemic heart disease and other diseases of the circulatory system; Z80.1 Family history of malignant neoplasm of trachea, bronchus and lung; Z87.891 Personal history of nicotine dependence; Z72.89 Other problems related to lifestyle; Z88.8 Allergy status to other drugs, medicaments and biological substances; Z91.11 Patient's noncompliance with dietary regimen; Z79.01 Long term (current) use of anticoagulants
CPT/HCPCS: 36415; 71045; 80048; 80053; 80162; 82272; 82607; 82728; 83540; 83550; 83880; 84484; 85025; 85027; 85610; 93005; 93306; 94640; 99285; A9270-GY; G0378; J0696; J1940

== ENCOUNTER → 2017-10-29 09:48 | Day surgery (SDC) | payer MEDICARE ==
--- NOTE | 2017-10-13 22:53 | HP ---
CC: Dr. Vicky Ace; Dr. Rodney Morrow, Facility Service Manager, [place] * ADMISSION HISTORY AND PHYSICAL: DATE OF ADMISSION: 10/29/17 ATTENDING SURGEON: Dr. Prasanth Franco.* (DICTATED BY TAYLOR MASON) CHIEF COMPLAINT: Right inguinal hernia. HISTORY OF PRESENT ILLNESS: This is a 81-year-old female with multiple medical problems, who has had a known right inguinal hernia for many years, which had been minimally, if at all, symptomatic. However, she has noted an increase in size of the right groin bulge over the past 2 years and she had an episode of pain in the area of the hernia about 1 month ago, which resolved on its own, with conservative treatment (Tylenol and rest). She was seen by her primary care provider at that time (Dr. Ace) and was referred for consultation. She was seen in the office by Dr. Franco on 10/02/17, his chart note states that the patient has a moderately large right inguinal hernia, which is reducible and nontender. The patient states that the bulge is present pretty much all the time including when she is supine, but she has been otherwise symptom free in the past couple of weeks. She has had an increasing constipation however in recent weeks and is using a herbal laxative tea with effect. The patient was seen for preoperative cardiology evaluation by Dr. Morrow (see attached). She understands the indications for surgery, the risks, benefits, and alternatives, and would like to proceed as scheduled with open repair of right inguinal hernia with mesh. PAST MEDICAL HISTORY: Atrial fibrillation, on chronic anticoagulation; hypertension; right bundle branch block; asthma; nonobstructing coronary artery disease; severe tricuspid regurgitation with increased pulmonary pressures and CHF; history of severe mitral regurgitation, status post mitral clip procedure, 05/28/17. She has a history of chronic kidney disease (stage 3). PAST SURGICAL HISTORY: Include the MitraClip as noted above; tubal ligation in the past; cardiac catheterization at least x2, the most recent being March 2017, which showed normal coronary arteries (see attached from Dr. Morrow). CURRENT MEDICATIONS: 1. Eliquis 5 mg b.i.d. (the patient instructed to hold preoperatively, her last dose being 10/26/17). 2. Advair Diskus 250/50 mcg one inhalation b.i.d. 3. Metoprolol 25 mg one-half tablet b.i.d. 4. Digoxin 125 mcg one tablet once daily. 5. Eplerenone 25 mg once daily at h.s. 6. Torsemide 20 mg b.i.d. 7. Entresto 24-26 b.i.d. 8. Atorvastatin 10 mg q. day. 9. ProAir HFA 90 mcg two puffs p.r.n. (uses daily and as needed). 10. Smooth Move laxative tea p.r.n. (uses multiple times weekly). 11. Vitamin D3 1000 International Units once daily. 12. Tylenol p.r.n. ALLERGIES: None (spironolactone caused hair loss). FAMILY HISTORY: Negative for anesthesia problems, bleeding or clotting disorders. SOCIAL HISTORY: The patient denies use of tobacco, alcohol, or other recreational drugs. REVIEW OF SYSTEMS: General: No recent constitutional symptoms or acute illnesses other than described in the HPI. Cardiovascular: She was seen by Dr. Morrow on 10/06/17 and underwent a transthoracic echocardiogram on (see separate attached notes). She does have chronic peripheral edema as well as dyspnea on exertion and three-pillow orthopnea. She complains of pruritus generally but also specifically related to the lower extremities. She has not had any recent history of skin breakdown or cellulitis. Remainder of review of systems is negative. PHYSICAL EXAMINATION GENERAL: Well-nourished, elderly, female in no acute distress. VITAL SIGNS: Height, weight, and vital signs per nursing. HEENT: Pupils are equal, round, and reactive. EOMs intact. No conjunctival pallor. Oropharynx: No intraoral lesions. LUNGS: Clear to auscultation. No rales or wheezes. NECK: No lymphadenopathy, thyromegaly or masses. HEART: Irregularly irregular. No murmur noted. ABDOMEN: Soft, nontender to palpation. No palpable masses or organomegaly with the exception of the right inguinal hernia, which on today's exam is not easily reducible in the supine position. GENITALIA: Not done. RECTAL: Not done. BACK: No spinous process or CVA tenderness. EXTREMITIES: 1 to 2+ bilateral lower extremity edema. No skin breakdown. NEUROLOGICAL: Grossly intact. SKIN: Warm and dry. No suspicious rashes or lesions noted. IMPRESSION: Right inguinal hernia. PLAN: Open repair right inguinal hernia with mesh. TAYLOR AMSON [id number]/[facility] #: [id number] MTDD
[~2017-10-29 09:48] MED LIST: Acetaminophen TAB* 325 MG PO PRN; Buffered Lidocaine 0.9% SYRIN* 5 ML/SYR SYRINGE INTRADERM ONE; Bupivacaine 0.25% W/EPI* 10 ML SDV ONE; DiMENhydriNATE IV* 50 MG/ML VIAL IV PUSH PRN; Famotidine IV* 10 MG/ML 2 ML (20 mg) ONE; HYDROcodone/ACETAMIN 5-325 MG* 1 TAB ONE; HYDROcodone/ACETAMIN 5-325 MG* 1 TAB PO PRN; KETAMINE HCL* 50 MG/ML 10 ML VIAL ONE; Ketorolac INJ* 30 MG/ML 1 ML VIAL ONE; Levalbuterol 0.63MG/3ML NEB* UNIT OF USE INH PRN; Lidocaine 1% INJ* 10 MG/ML 30 ML SDV ONE; Lidocaine 2% PF * 5 ML VIAL ONE; Midazolam* 1 MG/ML 2 ML VIAL (2 MG) ONE; NS 0.9% 1000 ML* 1,000 ML IV SCH; Naloxone* 0.4 MG/ML 1 ML VIAL IV PRN; OXYTOCIN* 10 UNITS/ML 1 ML VIAL ONE; Ondansetron INJ* 2 MG/ML VIAL IV PRN; PROCHLORPERAZINE INJ 5 MG/ML 2 ML VIAL IV PRN; Propofol* 10 MG/ML 20 ML BTL IV PUSH ONE; ceFAZolin 2 GM PREMIX (*) 2 GM/50 ML BAG IVPB ONE; diPHENhydraMINE IV* 50 MG/ML 1 ml VIAL (BENADRYL) ONE; fentaNYL* 50 MCG/ML 2 ML VIAL (100 MCG VIAL) IV PRN; fentaNYL* 50 MCG/ML 2 ML VIAL (100 MCG VIAL) ONE
--- NOTE | 2017-10-29 13:02 | OP ---
Operative Report - Blank - Operative Report Date of Operation: 10/29/17 Note: Brief Operative Note: Preop Dx: Right inguinal hernia Postop Dx: same (indirect) Procedure: open repair RIH w/ mesh Anesthesia: local MAC Surgeon: Joan Asst: TAYLOR Marie Fluids: 250 ml NS EBL: < 30 ml Drains: none Specimen: hernia sac Findings: dictated
[2017-10-29 14:22] VITALS: BP 118/71
--- NOTE | 2017-11-19 16:04 | OP ---
CC: [facility]; Patient's primary care doctor, Vicky Ace MD * DATE OF OPERATION: 10/29/17 - [facility] Please note that this is a late entry. DATE OF : 39. SURGEON: Prasanth Franco MD. PRINTING SHOP SUPERVISOR: TAYLOR Marquez. ANESTHESIA: Local MAC. PRE-OP DIAGNOSIS: Right inguinal hernia. POST-OP DIAGNOSIS: Right inguinal hernia. OPERATIVE PROCEDURE: Open repair of right inguinal hernia with mesh. ESTIMATED BLOOD LOSS: Minimal blood loss of less than 30 cc. FLUIDS: 250 cc. SPECIMEN: Hernia sac. DRAINS: None. DESCRIPTION OF PROCEDURE: The patient was identified in the preoperative area. Consent was signed. The patient was marked, brought to the operating room, placed on the operating table in supine position. Preoperative antibiotics were given. Sequential devices were placed on bilateral lower extremities. Gentle sedation was given. The patient's groin hair was clipped and the groin was prepped and draped in a standard surgical fashion. A time-out was performed. After injection of lidocaine, an inguinal incision was made. This was deepen down to aponeurosis of external oblique which was thinned out with hernia identified clearly in the site. We opened this thin wrapper layer an identified the hernia sac. This was cleared off of its contents right down to the neck, which appeared to be a indirect hernia. Sac was opened up. Contents pushed back into the abdomen. There was no evidence of adhesions. There hernia sac was then ligated with a 0 Polysorb suture. The sac passed off as specimen. Cleaned up the floor of inguinal canal and the round ligament was identified. This was ligated. Next a Parietex right- sided mesh was then placed at the floor of the inguinal canal. This was extended towards the indirect space and laterally it was placed under the external oblique aponeurosis which was reapproximated covering this mesh lay without wrinkling. We did place a suture at the pubic tubercle. The wound was then irrigated and skin closed in a standard fashion. Sterile dressing was applied. The patient tolerated the procedure well. [id number]/[facility] #: [id number] [facility]
== END | disposition home or self-care (01) ==
LOC: OR 09:48
PROVIDERS: ATTEND Surgery
DX: K40.90 Unilateral inguinal hernia, without obstruction or gangrene, not specified as recurrent (principal); I48.91 Unspecified atrial fibrillation; Z79.01 Long term (current) use of anticoagulants; I45.10 Unspecified right bundle-branch block; J45.909 Unspecified asthma, uncomplicated; I25.10 Atherosclerotic heart disease of native coronary artery without angina pectoris; I08.1 Rheumatic disorders of both mitral and tricuspid valves; N18.3 Chronic kidney disease, stage 3 (moderate); I12.9 Hypertensive chronic kidney disease with stage 1 through stage 4 chronic kidney disease, or unspecified chronic kidney disease
CPT/HCPCS: 88302; C1781; J0690; J1200; J1885; J2250; J2590; J2704; J3010

== ENCOUNTER 2021-12-24 22:24 | Observation (INO) ==
[2021-12-25 01:58] LABS: ABS Basophils 0.1 10^3/ul (0-0.2); ABS Eosinophils 0.1 10^3/ul (0-0.6); ABS Lymphocytes 0.4 10^3/ul (1.0-4.8); ABS Monocytes 0.6 10^3/ul (0-0.8); ABS Neutrophils 3.9 10^3/ul (1.5-7.7); Eosinophil % 1.1 %; Hematocrit 37 % (35-47); Hemoglobin 11.7 g/dL (12.0-16.0); Lymphocyte % 8.1 %; Mean Corpuscular HGB Conc 31 g/dL (31-36); Mean Corpuscular Hemoglobin 31 pg (27-31); Mean Corpuscular Volume 100 fL (80-97); Mean Platelet Volume 9.8 fL (7.4-10.4); Nucleated Red Blood Cells % 0.2; Platelet Count 116 10^3/uL (150-450); Red Blood Count 3.75 10^6 /uL (3.70-4.87); Red Cell Distribution Width 16 % (10-15); White Blood Count 5.1 10^3/uL (3.5-10.8)
[2021-12-25 02:09] LABS: INR 1.48 (0.89-1.11)
[2021-12-25 02:40] LABS: Albumin 4.1 g/dL (3.2-5.2); Albumin/Globulin Ratio 1.2 (1-3); Calcium 9.2 mg/dL (8.6-10.3); Globulin 3.4 g/dL (2-4); Potassium 4.8 mmol/L (3.5-5.0); Total Bilirubin 1.7 mg/dL (0.2-1.0); Total Protein 7.5 g/dL (6.4-8.9)
[2021-12-25] MEDS ORDERED: Furosemide 40 mg/4 ml IV VIAL IV SLOW PU ONE ×2 (03:28→03:31)
[2021-12-25 04:08] LABS: C Reactive Protein 5.81 mg/L (<8.01)
[2021-12-25] MEDS ORDERED: Furosemide 20 mg/2 ml IV VIAL IV SLOW PU ONE (04:15)
[2021-12-25] MEDS ORDERED: Albuterol HFA INHALER 8 gm MDI INH PRN (08:59)
[2021-12-25] MEDS: Mometasone/Formoter 200/5 MDI INH SCH ×2 (11:08→19:08)
[2021-12-25] MEDS ORDERED: Furosemide 40 mg/4 ml IV VIAL IV SCH ×2 (18:00→21:00)
[2021-12-26 06:43] LABS: ABS Basophils 0.1 10^3/ul (0-0.2); ABS Eosinophils 0.1 10^3/ul (0-0.6); ABS Lymphocytes 0.6 10^3/ul (1.0-4.8); ABS Neutrophils 4.1 10^3/ul (1.5-7.7); Eosinophil % 1.1 %; Hematocrit 39 % (35-47); Hemoglobin 11.9 g/dL (12.0-16.0); Mean Corpuscular HGB Conc 30 g/dL (31-36); Mean Corpuscular Hemoglobin 31 pg (27-31); Mean Corpuscular Volume 103 fL (80-97); Mean Platelet Volume 9.7 fL (7.4-10.4); Nucleated Red Blood Cells % 0.1; Platelet Count 123 10^3/uL (150-450); Red Blood Count 3.83 10^6 /uL (3.70-4.87); Red Cell Distribution Width 17 % (10-15); White Blood Count 5.8 10^3/uL (3.5-10.8)
[2021-12-26 06:58] LABS: Blood Urea Nitrogen 47 mg/dL (6-24); CO2 Carbon Dioxide 31 mmol/L (22-32); Calcium 8.9 mg/dL (8.6-10.3); Chloride 99 mmol/L (101-111); Glucose 106 mg/dL (70-100); Magnesium 2.2 mg/dL (1.9-2.7); Sodium 139 mmol/L (135-145); eGFR CKD-EPI 32.6 (>60)
[2021-12-26 07:07] LABS: Anion Gap 9 mmol/L (2-11)
[2021-12-26] MEDS ORDERED: Furosemide 40 mg/4 ml IV VIAL IV SCH (07:45)
[2021-12-26] MEDS: Mometasone/Formoter 200/5 MDI INH SCH ×2 (07:49→19:54)
[2021-12-27 06:22] LABS: ABS Basophils 0.1 10^3/ul (0-0.2); ABS Lymphocytes 0.5 10^3/ul (1.0-4.8); ABS Monocytes 0.7 10^3/ul (0-0.8); Eosinophil % 0.9 %; Hematocrit 37 % (35-47); Hemoglobin 11.6 g/dL (12.0-16.0); Lymphocyte % 9.6 %; Mean Corpuscular HGB Conc 31 g/dL (31-36); Mean Corpuscular Hemoglobin 32 pg (27-31); Mean Corpuscular Volume 100 fL (80-97); Mean Platelet Volume 9.6 fL (7.4-10.4); Nucleated Red Blood Cells % 0.1; Platelet Count 114 10^3/uL (150-450); Red Blood Count 3.67 10^6 /uL (3.70-4.87); Red Cell Distribution Width 16 % (10-15); White Blood Count 5.3 10^3/uL (3.5-10.8)
[2021-12-27 06:39] LABS: Calcium 8.8 mg/dL (8.6-10.3); Magnesium 2.1 mg/dL (1.9-2.7); Phosphorus 4.4 mg/dL (2.5-5.0); eGFR CKD-EPI 32.1 (>60)
[2021-12-27 06:40] LABS: Potassium 5.1 mmol/L (3.5-5.0)
[2021-12-27] MEDS: Mometasone/Formoter 200/5 MDI INH SCH ×2 (07:18→20:35)
[2021-12-28] MEDS ORDERED: Albuterol/Ipratropium NEB.SOL (2.5/0.5 MG) 3 ML NEB.SOLN INH ONE (03:43)
[2021-12-28 06:53] LABS: Calcium 8.9 mg/dL (8.6-10.3); Magnesium 2.1 mg/dL (1.9-2.7); eGFR CKD-EPI 33.6 (>60)
[2021-12-28 06:57] LABS: Potassium 5.2 mmol/L (3.5-5.0)
[2021-12-28] MEDS: Mometasone/Formoter 200/5 MDI INH SCH (07:10)
[2021-12-28] MEDS ORDERED: Sodium Polystyrene ORAL.SUSP 15 GM/60 ML BTL PO ONE (08:52)
[2021-12-28 11:48] VITALS: BP 108/63
[2021-12-28] MEDS ORDERED: Furosemide 20 mg/2 ml IV VIAL IV SLOW PU ONE (11:53)
== END 2021-12-28 14:40 | disposition home or self-care (01) ==
LOC: ED 22:24 → EDHOLD 22:24 → SUATTDRO 12-25 04:06 → EDHOLD 12-25 07:11 → MEDTELE 12-25 09:09
PROVIDERS: ADMIT Internal Medicine; ATTEND Internal Medicine

== ENCOUNTER 2021-12-30 14:28 | Inpatient (IN) ==
[2021-12-30] MEDS ORDERED: Atropine 0.1 MG/ML 10 ml SYR (1 mg) IV PUSH ONE ×3 (14:46→17:51)
[2021-12-30 15:19] LABS: PO2 Arterial 200 mmHg (80-100)
[2021-12-30 15:23] LABS: PCO2 Arterial 75 mmHg (35-45)
[2021-12-30] MEDS ORDERED: Hydrocortisone INJ 100 MG/2ML 2 ML VIAL IV ONE (15:24)
[2021-12-30 15:30] LABS: ABS Lymphocytes 0.3 10^3/ul (1.0-4.8); ABS Monocytes 0.8 10^3/ul (0-0.8); ABS Neutrophils 4.7 10^3/ul (1.5-7.7); ABS Nucleated RBC 0.1 10^3/ul; Hematocrit 40 % (35-47); Lymphocyte % 4.7 %; Mean Corpuscular HGB Conc 30 g/dL (31-36); Mean Corpuscular Hemoglobin 31 pg (27-31); Mean Corpuscular Volume 103 fL (80-97); Mean Platelet Volume 10.6 fL (7.4-10.4); Nucleated Red Blood Cells % 0.9; Platelet Count 135 10^3/uL (150-450); Red Blood Count 3.88 10^6 /uL (3.70-4.87); Red Cell Distribution Width 17 % (10-15); White Blood Count 5.8 10^3/uL (3.5-10.8)
[2021-12-30] MEDS ORDERED: Piperacillin/Tazobac ADVAN 3.375 GM in NS 0.9% 100 ml BAG 100 ML IV ONE (15:31)
[2021-12-30 16:04] LABS: Albumin 3.9 g/dL (3.2-5.2); Albumin/Globulin Ratio 1.1 (1-3); C Reactive Protein 7.3 mg/L (<8.01); Calcium 9.7 mg/dL (8.6-10.3); Digoxin 2.2 ng/ml (0.8-2.0); Globulin 3.4 g/dL (2-4); Total Protein 7.3 g/dL (6.4-8.9); eGFR CKD-EPI 17.3 (>60)
[2021-12-30] MEDS ORDERED: Dextrose 50% Syringe 50 ml 25 GM/50 ML SYRINGE IV PUSH ONE (16:08)
[2021-12-30 16:10] LABS: HCG Pregnancy 1.52 mIU/mL; Potassium 5.6 mmol/L (3.5-5.0)
[2021-12-30 16:55] LABS: PCO2 Arterial 66 mmHg (35-45); PO2 Arterial 105 mmHg (80-100)
[2021-12-30] MEDS ORDERED: Furosemide 40 mg/4 ml IV VIAL IV SLOW PU ONE (17:50)
[2021-12-30] MEDS ORDERED: D10W 1000 ml BAG 1,000 ML IV SCH (19:00)
[2021-12-30 19:03] LABS: Activated Partial Thrombo Time 42.9 seconds (26.0-38.0); INR 4.16 (0.89-1.11)
[2021-12-30 19:26] LABS: PCO2 Arterial 57 mmHg (35-45); PO2 Arterial 125 mmHg (80-100)
[2021-12-30] MEDS ORDERED: Heparin DRIP 25,000 UNITS BAG 25,000 UNITS/500 ML BAG IV SCH (19:30)
[2021-12-30] MEDS ORDERED: DOBUTamine IV 500 MG in D5W 250 ml BAG 210 ML IV SCH (20:00)
[2021-12-30 20:13] LABS: TSH Ultra Thyroid Stim Horm 8.83 mcIU/mL (0.34-5.60)
[2021-12-30 21:13] LABS: High Sensitivity Troponin 1 Hr 7 pg/mL (<15)
[2021-12-30 21:48] LABS: Magnesium 2.1 mg/dL (1.9-2.7); Phosphorus 7.2 mg/dL (2.5-5.0); eGFR CKD-EPI 16.4 (>60)
[2021-12-30 21:50] LABS: Potassium 5.2 mmol/L (3.5-5.0)
[2021-12-30] MEDS ORDERED: Bumetanide IV 0.25 MG/ML 4 ml VIAL (1 mg) SLOW PUSH ONE (22:00)
[2021-12-31 01:16] LABS: PCO2 Arterial 43 mmHg (35-45); PO2 Arterial 101 mmHg (80-100)
[2021-12-31 02:57] LABS: Urine Appearance Cloudy; Urine Bilirubin Negative (Negative); Urine Blood 3+ (Negative); Urine Color Yellow; Urine Glucose Negative (Negative); Urine Ketones Negative (Negative); Urine Nitrite Negative (Negative); Urine Protein Negative (Negative); Urine Specific Gravity 1.006 (1.002-1.030); Urine Urobilinogen Negative (Negative)
[2021-12-31 03:02] LABS: Albumin 3.2 g/dL (3.2-5.2); Albumin/Globulin Ratio 1.1 (1-3); Calcium 8.4 mg/dL (8.6-10.3); Globulin 2.8 g/dL (2-4); Potassium 4.8 mmol/L (3.5-5.0); Total Bilirubin 2.1 mg/dL (0.2-1.0); eGFR CKD-EPI 16.6 (>60)
[2021-12-31 03:06] LABS: Urine Bacteria Absent (Absent); Urine Red Blood Cell 3+(>10/hpf) (Absent); Urine Red Blood Cell Casts Present (Absent); Urine Squamous Epithelial Cell Present (Absent); Urine White Blood Cell 1+(6-10/hpf) (Absent)
[2021-12-31 03:55] LABS: Activated Partial Thrombo Time 200.1 seconds (26.0-38.0)
[2021-12-31 04:38] LABS: ABS Lymphocytes 0.2 10^3/ul (1.0-4.8); ABS Monocytes 0.9 10^3/ul (0-0.8); ABS Neutrophils 5.2 10^3/ul (1.5-7.7); Hematocrit 32 % (35-47); Hemoglobin 10.1 g/dL (12.0-16.0); Lymphocyte % 3.6 %; Mean Corpuscular HGB Conc 32 g/dL (31-36); Mean Corpuscular Hemoglobin 31 pg (27-31); Mean Corpuscular Volume 98 fL (80-97); Mean Platelet Volume 10.1 fL (7.4-10.4); Nucleated Red Blood Cells % 0.1; Platelet Count 110 10^3/uL (150-450); Red Blood Count 3.26 10^6 /uL (3.70-4.87); Red Cell Distribution Width 16 % (10-15); White Blood Count 6.3 10^3/uL (3.5-10.8)
[2021-12-31] MEDS ORDERED: Piperacillin/Tazobac ADVAN 3.375 GM in NS 0.9% 100 ml BAG 100 ML IV ONE (05:00)
[2021-12-31] MEDS ORDERED: Bumetanide IV 0.25 MG/ML 4 ml VIAL (1 mg) SLOW PUSH SCH (10:00)
[2021-12-31 10:07] LABS: INR 6.53 (0.89-1.11)
[2021-12-31 10:22] LABS: Mean Platelet Volume 9.9 fL (7.4-10.4); Platelet Count 107 10^3/uL (150-450)
[2021-12-31 10:22] LABS: Ferritin 55.6 ng/mL (11-307)
[2021-12-31 10:58] LABS: Activated Partial Thrombo Time 151.7 seconds (26.0-38.0)
[2021-12-31] MEDS ORDERED: Milrinone 20,000 MCG/100 ML BAG IV SCH (11:00)
[2021-12-31 11:10] LABS: INR 4.75 (0.89-1.11)
[2021-12-31 11:49] VITALS: BP 88/63
[2021-12-31] MEDS ORDERED: cefTRIAXone 1 gm/50 mL D5W 1 GM/50 ML BAG IV SCH (12:00)
[2021-12-31 12:34] LABS: ABS Lymphocytes 0.2 10^3/ul (1.0-4.8); ABS Monocytes 0.6 10^3/ul (0-0.8); ABS Neutrophils 6.5 10^3/ul (1.5-7.7); Hematocrit 32 % (35-47); Hemoglobin 10.5 g/dL (12.0-16.0); Lymphocyte % 2.9 %; Mean Corpuscular HGB Conc 32 g/dL (31-36); Mean Corpuscular Hemoglobin 32 pg (27-31); Mean Corpuscular Volume 98 fL (80-97); Nucleated Red Blood Cells % 0.2; Red Blood Count 3.32 10^6 /uL (3.70-4.87); Red Cell Distribution Width 15 % (10-15); White Blood Count 7.4 10^3/uL (3.5-10.8)
[2021-12-31 12:40] LABS: Calcium 8.2 mg/dL (8.6-10.3); Potassium 4.7 mmol/L (3.5-5.0); eGFR CKD-EPI 17.7 (>60)
== END 2021-12-31 12:30 | disposition short-term general hospital (02) | DRG 91 ==
LOC: ED 14:28 → EDHOLD 16:37 → ICU 18:56
PROVIDERS: ADMIT Internal Medicine; ATTEND Internal Medicine